=== PATIENT | female | born 1995 | race Caucasian/White ===

== ENCOUNTER 2020-11-19 10:16 | Emergency (ER) | payer SELFPAY ==
[~2020-11-19] VITALS: Ht 165.1 cm; Wt 69.8 kg
--- NOTE | 2020-11-19 11:47 | ED EENT ---
History of Present Illness General Chief Complaint: Ear Problems Stated Complaint: RT EAR PAIN Nursing Triage Note: Patient presents to ED with parent reporting R ear pain since last night and causing lack of rest. Last medication used was Ibufrofen at 0200 and not relieved. Report hx of ear pain twice in last month and once treated with antibiotic and once no meds so refusing to return to PCP today. Source: patient History of Present Illness Date Seen by Provider: Nov 19, 2020 Time Seen by Provider: 10:15 Initial Comments Patient is a 25-year-old female who presents with intermittent bilateral ear pain for the past several weeks. Patient has been evaluated by her PCP and and this ER. She has been prescribed pain medications and antibiotics. She states the pain will improve and return. She reports dull right ear pain recurring last night. She has taken ibuprofen with minimal relief. Pain is rated as moderate and radiates to right mandible. She has some nasal congestion and sinus drainage. She denies otorrhea, sinus and dental tenderness and was evaluated by her dentist 1 week ago. Timing/Duration: gradual Severity: moderate Location: other Prearrival Treatment: other Modifying Factors: Improves With Other Associated Symptoms: other Allergies and Home Medications Patient Home Medication List Home Medication List Reviewed: Yes Review of Systems Review of Systems Constitutional: see HPI Eyes: See HPI Ears: See HPI Nose: see HPI Mouth: see HPI Throat: see HPI Respiratory: see HPI Cardiovascular: see HPI Gastrointestinal: see HPI Musculoskeletal: see HPI Skin: see HPI Neurological: See HPI Hematologic/Lymphatic: See HPI Immunological/Allergic: see HPI Past Ybkmflr-Dlztir-Cuywdm Hx Patient Social History Tobacco Use?: No Smoking Status: Never a Smoker Substance use?: No Alcohol Use?: Yes Alcohol Frequency: Rarely Pt feels they are or have been: No Past Medical History Surgery/Hospitalization HX: Hx hyperactive thyroid Last Menstrual Period: Nov 15, 2020 Visual Acuity : Eye Location: Bilaterally Vision Acuity Degree: Physical Exam Vital Signs Vital Signs - First Documented 11/19/20 10:42 Temp 36.4 Pulse 92 Resp 16 B/P (MAP) 126/73 (90) Pulse Ox 100 O2 Delivery Room Air Height, Weight, BMI Height: '" Weight: lbs. oz. kg; 25.00 BMI Method: General Appearance: moderate distress Eyes: bilateral eye normal inspection, bilateral eye PERRL, bilateral eye EOMI, bilateral eye abnormal EOM, bilateral eye abnormal pupil, bilateral eye A-V nicking, bilateral eye conjunctival hemorrhage, bilateral eye conjunctival inflammation, bilateral eye conjunctivae pale, bilateral eye corneal abrasion Ears: left ear TM dull, left ear TM bulging, left ear other (blo) Progress/Results/Core Measures Results/Orders Vital Signs/I&O 11/19/20 10:42 Temp 36.4 Pulse 92 Resp 16 B/P (MAP) 126/73 (90) Pulse Ox 100 O2 Delivery Room Air Blood Pressure Mean: 90 Departure Communication (Admissions) Chronic otitis media with serous effusions. Recommendations are supportive care with PCP follow-up. Return precautions reviewed. Patient verbalizes understanding agreement discharge instructions prior to departure Impression Primary Impression: Chronic otitis media with serous effusion Disposition: HOME, SELF-CARE Condition: Stable Departure-Patient Inst. Decision time for Depature: 12:08 Referrals: [facility] (PCP) Primary Care Physician DILLON LIZ APRN (Family) Primary Care Physician Patient Instructions: Serous Otitis Media Add. Discharge Instructions: Please take newly prescribed medications as directed and follow-up with your PCP in 1 week for reevaluation. All discharge instructions reviewed with patient and/or family. Voiced understanding. Scripts Fexofenadine/Pseudoephedrine (Yasmine-D 24 Hour Tablet) 1 Each Tab.er.24h 1 EACH PO DAILY for 14 Days, TAB Prov: SONIA LAND DO 11/19/20 Tramadol HCl (Tramadol HCl) 50 Mg Tablet 50 MG PO Q6H PRN for PAIN for 3 Days, #10 TAB 0 Refills Prov: SONIA LAND DO 11/19/20 SONIA LAND DO Nov 19, 2020 11:47
[2020-11-19] MEDS ORDERED: FEXO1TAB43 PO (12:14)
[2020-11-19] MEDS ORDERED: TRM50T PO (12:14)
[2020-11-19 12:15] VITALS: BP 124/70
[2020-11-19] MEDS ORDERED: ONDA4TAB11 PO (13:24)
== END 2020-11-19 12:15 | disposition home or self-care (01) ==
LOC: EDUNIT# 10:16 → ER FS 10:18
DX: H65.23 Chronic serous otitis media, bilateral (principal)
CPT/HCPCS: 99282

== ENCOUNTER → 2021-01-17 | Outpatient (CLI) | payer SELFPAY ==
[~2021-01-17] MED LIST: FEXO1TAB43 PO; ONDA4TAB11 PO; TRM50T PO
== END ==
LOC: CARD 15:30
PROVIDERS: ATTEND Nurse Practitioner Family
DX: R00.2 Palpitations (principal)
CPT/HCPCS: 93225; 93226

== ENCOUNTER 2021-10-17 23:56 | Emergency (ER) | payer SELFPAY ==
[~2021-10-17] VITALS: Ht 162.5 cm; Wt 83.5 kg
[2021-10-18 00:04] VITALS: BP 146/87
[2021-10-18 00:40] LABS: BILIRUBIN,URINE NEGATIVE (NEGATIVE); CLARITY,URINE SLIGHTLY CLOUDY; COLOR,URINE YELLOW; GLUCOSE, URINE (UA) NEGATIVE (NEGATIVE); KETONES,URINE NEGATIVE (NEGATIVE); LEUKOCYTE ESTERASE ,URINE NEGATIVE (NEGATIVE); NITRITE,URINE NEGATIVE (NEGATIVE); PROTEIN,URINE NEGATIVE (NEGATIVE)
[2021-10-18 00:41] LABS: BACTERIA,URINE MODERATE /HPF; SQUAMOUS EPITHELIAL CELL,UR 25-50 /HPF
--- NOTE | 2021-10-18 01:04 | ED GU-Female ---
General Chief Complaint: - Reproductive Stated Complaint: LOWER ABDOMINAL PAIN/5 WEEK PREG Nursing Triage Note: Patient states that she found out she was last week. She reports feeling cramping that makes her uncomfortable. Patient denies having any bleeding. Patient reports that she thinks she is about 5 weeks . Patient would like to be checked out. Source: patient Exam Limitations: no limitations History of Present Illness Date Seen by Provider: Oct 18, 2021 Time Seen by Provider: 00:10 Initial Comments Patient is approximately 5 weeks reports occasional mitten cramping for the past month. Patient states she occasionally feels uncomfortable sharp pain. She currently denies pain or discomfort. No urinary frequency urgency dysuria. No vaginal bleeding. No flank pain. No nausea or vomiting. Patient did not take any Tylenol medication prior to arrival. No other acute symptoms or complaints. Timing/Duration: week Severity/Quality: other Location: other Radiation: urethral Activities at Onset: other Sexual [place] History: other Associated Symptoms: other Allergies and Home Medications Allergies Coded Allergies: azithromycin (Verified Allergy, Unknown, 10/18/21) Patient Home Medication List Home Medication List Reviewed: Yes Fexofenadine/Pseudoephedrine (Yasmine-D 24 Hour Tablet) 1 Each Tab.er.24h, 1 EACH PO DAILY Prescribed by: SONIA LAND on 11/19/20 1214 Ondansetron (Ondansetron Odt) 4 Mg Tab.rapdis, 4 MG PO Q6H Prescribed by: SONIA LAND on 11/19/20 1324 Tramadol HCl (Tramadol HCl) 50 Mg Tablet, 50 MG PO Q6H PRN for PAIN Prescribed by: SONIA LAND on 11/19/20 1214 Review of Systems Review of Systems Constitutional: see HPI Genitourinary: see HPI Past Ofovqoa-Xczzsi-Dafnoq Hx Patient Social History Tobacco Use?: No Substance use?: No Alcohol Use?: No Pt feels they are or have been: No Past Medical History Surgery/Hospitalization HX: Hx hyperactive thyroid Physical Exam Vital Signs Vital Signs - First Documented 10/18/21 00:04 Temp 37.1 Pulse 110 Resp 18 B/P (MAP) 146/87 (106) O2 Delivery Room Air Capillary Refill : Less Than 3 Seconds Height, Weight, BMI Height: '" Weight: lbs. oz. kg; 31.00 BMI Method: General Appearance: WD/WN, no apparent distress Gastrointestinal: non tender, soft Focused Exam Sepsis Stage: Ruled Out Progress/Results/Core Measures Suspected Sepsis SIRS Temperature: Pulse: 110 Respiratory Rate: 18 Blood Pressure 146 /87 Mean: 106 Results/Orders Lab Results Laboratory Tests Test 10/18/21 00:10 Range/Units Urine Color YELLOW Urine Clarity SLIGHTLY CLOUDY Urine pH 6.0 5-9 Urine Specific [place] >=1.030 1.016-1.022 Urine Protein NEGATIVE NEGATIVE Urine Glucose (UA) NEGATIVE NEGATIVE Urine Ketones NEGATIVE NEGATIVE Urine Nitrite NEGATIVE NEGATIVE Urine Bilirubin NEGATIVE NEGATIVE Urine Urobilinogen 0.2 < = 1.0 MG/DL Urine Leukocyte Esterase NEGATIVE NEGATIVE Urine RBC (Auto) TRACE-I H NEGATIVE Urine RBC NONE /HPF Urine WBC 5-10 H /HPF Urine Squamous Epithelial Cells 25-50 H /HPF Urine Crystals NONE /LPF Urine Bacteria MODERATE H /HPF Urine Casts NONE /LPF Urine Mucus NEGATIVE /LPF Urine Culture Indicated NO My Orders Orders - SONIA LAND DO Ua Culture If Indicated (10/18/21 00:16) Urinalysis (10/18/21 00:10) Vital Signs/I&O 10/18/21 00:04 Temp 37.1 Pulse 110 Resp 18 B/P (MAP) 146/87 (106) O2 Delivery Room Air Capillary Refill : Less Than 3 Seconds Blood Pressure Mean: 106 Departure Communication (Admissions) No pelvic pain/tenderness on exam. UA negative. Recommendations are for supportive measures and PCP/OB follow-up. Return precautions reviewed Impression Primary Impression: Pelvic cramping Additional Impression: Early stage of Disposition: 01 HOME, SELF-CARE Condition: Stable Departure-Patient Inst. Decision time for Depature: 01:02 Referrals: [facility][1[facility] (PCP) Primary Care Physician DILLON LIZ APRN (Family) Primary Care Physician Patient Instructions: Pelvic Pain Add. Discharge Instructions: Please take Tylenol for cramping and apply heating pad if needed. Follow-up with your PCP or OB early next week for reevaluation. Return to the ED if new or worsening symptoms All discharge instructions reviewed with patient and/or family. Voiced understanding. SONIA LAND DO Oct 18, 2021 01:04
== END 2021-10-18 01:11 | disposition home or self-care (01) ==
LOC: EDUNIT# 23:56 → ER FS 23:59
DX: O26.891 Other specified pregnancy related conditions, first trimester (principal); R10.2 Pelvic and perineal pain
CPT/HCPCS: 81000; 84703; 99282

== ENCOUNTER 2022-03-05 10:30 | Emergency (ER) | payer MEDICAID ==
[2022-03-05] MEDS ORDERED: FAMOTIDINE 20 MG (PEPCID) TABLET PO STA (10:45)
[2022-03-05] MEDS ORDERED: ONDANSETRON 4 MG (ZOFRAN) ORAL DISSOLVE TAB SL STA (10:45)
[2022-03-05] MEDS ORDERED: ACETAMINOPHEN 500 MG TAB (TYLENOL) ONE (10:49)
--- NOTE | 2022-03-05 10:51 | ED GI ---
General Chief Complaint: Abdominal/GI Problems Stated Complaint: VOMITING Source of Information: Patient Exam Limitations: No Limitations History of Present Illness Date Seen by Provider: Mar 05, 2022 Time Seen by Provider: 10:33 Initial Comments 27-year-old female at 26 WGA coming in due to 3 days of cough, sore throat, elevated temperature, nausea, and vomiting. Went to her primary doctor yesterday and had a negative strep test. Had a negative at home COVID test as well. Has not had anything for fever or pain as of yet today. Has not had any complications with the , no vaginal bleeding, feels baby moving, no contractions, and has had normal work-up thus far. One of her friends did have strep throat recently she believes. She is tolerating fluids at home but is drinking slightly less. She is otherwise denying any other acute complaints. Allergies and Home Medications Allergies Coded Allergies: azithromycin (Verified Allergy, Unknown, 10/18/21) Patient Home Medication List Home Medication List Reviewed: Yes Fexofenadine/Pseudoephedrine (Yasmine-D 24 Hour Tablet) 1 Each Tab.er.24h, 1 EACH PO DAILY Prescribed by: SONIA LAND on 11/19/20 1214 Ondansetron (Ondansetron Odt) 4 Mg Tab.rapdis, 4 MG PO Q6H Prescribed by: SONIA LAND on 11/19/20 1324 Tramadol HCl (Tramadol HCl) 50 Mg Tablet, 50 MG PO Q6H PRN for PAIN Prescribed by: SONIA LAND on 11/19/20 1214 Review of Systems Review of Systems Constitutional: malaise EENTM: No Blurred Vision; Other Respiratory: Cough Cardiovascular: Denies Chest Pain Gastrointestinal: Denies Abdominal Pain; Diarrhea, Nausea Genitourinary: No Symptoms Reported Musculoskeletal: no symptoms reported Skin: no symptoms reported Psychiatric/Neurological: No Symptoms Reported Endocrine: No Symptoms Reported Hematologic/Lymphatic: No Symptoms Reported All Other Systems Reviewed Negative Unless Noted: Yes Past [place]-Vnryfb-Gtgkzh Hx Patient Social History Tobacco Use?: No Past Medical History Surgery/Hospitalization HX: Hx hyperactive thyroid Surgeries: No Physical Exam Vital Signs Vital Signs - First Documented 03/05/22 10:40 Temp 36.3 Pulse 126 Resp 16 B/P (MAP) 128/87 (101) Pulse Ox 98 O2 Delivery Room Air Capillary Refill : Height/Weight/BMI Height: '" Weight: lbs. oz. kg; 31.00 BMI Method: General Appearance: WD/WN, no apparent distress HEENT: PERRL/EOMI, normal ENT inspection, pharyngeal erythema; No tonsillar exudate Neck: non-tender, full range of motion, supple, normal inspection Respiratory: chest non-tender, lungs clear, normal breath sounds, no respiratory distress, no accessory muscle use Cardiovascular: regular rate, rhythm, no edema, no murmur Gastrointestinal: normal bowel sounds, non tender, soft; No distended, No guarding, No rebound; other Extremities: normal range of motion, non-tender, normal inspection, no pedal edema, no calf tenderness, normal capillary refill Back: normal inspection, no CVA tenderness, no vertebral tenderness Neurologic/Psychiatric: no motor/sensory deficits, alert, normal mood/affect Skin: normal color, warm/dry Lymphatic: no adenopathy Progress/Results/Core Measures Results/Orders Lab Results Laboratory Tests Test 03/05/22 10:47 Range/Units Influenza Type A (RT-PCR) Not Detected Not Detecte Influenza Type B (RT-PCR) Not Detected Not Detecte SARS-CoV-2 RNA (RT-PCR) Not Detected Not Detecte My Orders Orders - JUAN SEO MD Influenza A And B By Pcr (03/05/22 10:45) Covid 19 Inhouse Test (03/05/22 10:45) Ondansetron Oral Dissolve Tab (Zofran (03/05/22 10:45) Famotidine Tablet (Pepcid Tablet) (03/05/22 10:45) Acetaminophen Tablet (Tylenol Tablet) (03/05/22 11:00) Acetaminophen Tablet (Tylenol Tablet) (03/05/22 10:49) Lactated Ringers (Lr 1000 Ml Iv Solution (03/05/22 11:15) Medications Given in ED Current Medications Medications Dose Ordered Sig/Madai Route Start Time Stop Time Status Last Admin Dose Admin Acetaminophen 1,000 mg ONCE ONCE PO 03/05/22 11:00 03/05/22 11:01 DC 03/05/22 11:17 1,000 MG Vital Signs/I&O 03/05/22 10:40 Temp 36.3 Pulse 126 Resp 16 B/P (MAP) 128/87 (101) Pulse Ox 98 O2 Delivery Room Air Progress Progress Note : Progress Note 27-year-old female with above history presenting for viral symptoms including cough, sore throat, nausea, diarrhea. ABCs were intact and vitals were stable on presentation although she is mildly tachycardic. She states over the past couple days she has not been eating and drinking as well. She was given oral Zofran and Pepcid. Able to drink some water with it, but does have some dry heaving. An IV was then placed and she was given a bolus of IV fluids. I did a [id number] ultrasound and her heart rate is in the 150s with movement as well. Flu and COVID test were negative. Patient's exam is reassuring including a soft and nontender abdomen. I believe she stable for discharge with outpatient follow-up. She was sent home with strict return precautions Departure Impression Primary Impression: Vomiting in adult Additional Impressions: Viral syndrome Qualified Codes: Z3A.26 - 26 weeks gestation of Disposition: HOME, SELF-CARE Condition: Stable Departure-Patient Inst. Decision time for Depature: 11:40 Referrals: YONATAN ROLDAN MD (PCP) Primary Care Physician Patient Instructions: Nausea and Vomiting, Adult ED Add. Discharge Instructions: You likely do have a virus that is going around town right now. Most people are getting better in about a week. Take frequent small sips of fluids. Take the Zofran as needed for nausea. A refill of your albuterol was sent to your pharmacy as well. Follow-up with your regular doctor if you are not improving or if they have any other concerns emergently please come to the ER. Scripts Ondansetron (Ondansetron Odt) 4 Mg Tab.rapdis 4 MG SL Q6H PRN for NAUSEA/VOMITING for 5 Days, #20 TAB Prov: JUAN SEO MD 03/05/22 Albuterol Sulfate (Ventolin Hfa) 90 Mcg Hfa.aer.ad 18 GM INH Q4H PRN for WHEEZING for 30 Days, #1 EA Prov: JUAN SEO MD 03/05/22 Work/School Note: Work Release Form Date Seen in the Emergency Department: Mar 05, 2022 Return to Work: Mar 06, 2022 Restrictions: Return-No Fever (24hrs), Return-No Vomiting(24hrs) JUAN SEO MD Mar 05, 2022 10:51
[2022-03-05] MEDS ORDERED: ACETAMINOPHEN 500 MG TAB (TYLENOL) PO ONE (11:00)
[2022-03-05] MEDS ORDERED: LACTATED RINGERS 1,000 ML IV STA (11:15)
[2022-03-05] MEDS ORDERED: ONDA4TAB11 SL (11:29)
[2022-03-05] MEDS ORDERED: ALBU18HF2 INH (11:29)
[2022-03-05 11:47] VITALS: BP 128/87
== END 2022-03-05 11:48 | disposition home or self-care (01) ==
LOC: EDUNIT# 10:30 → ER FS 10:32
DX: O98.512 Other viral diseases complicating pregnancy, second trimester (principal); O21.9 Vomiting of pregnancy, unspecified; O99.891 Other specified diseases and conditions complicating pregnancy; J02.9 Acute pharyngitis, unspecified; R05.1 Acute cough; R19.7 Diarrhea, unspecified; R00.0 Tachycardia, unspecified; Z20.822 Contact with and (suspected) exposure to COVID-19; Z28.310 Unvaccinated for COVID-19; Z3A.26 26 weeks gestation of pregnancy
CPT/HCPCS: 87636

== ENCOUNTER 2022-04-12 21:23 | Emergency (ER) | payer MEDICAID ==
[~2022-04-12] VITALS: Ht 162 cm; Wt 85.0 kg
[~2022-04-12 21:23] MED LIST changes: +ALBU18HF2 INH; +ONDA4TAB11 SL
--- NOTE | 2022-04-12 21:40 | ED GU-Female ---
General Chief Complaint: OB > 20 WEEKS Stated Complaint: POSSIBLE CONTRACTIONS Nursing Triage Note: Patient presented to the ER tonight with complaints of contractions, states her stomach feels hard and that she has felt decreased movement. Source: patient Exam Limitations: no limitations History of Present Illness Date Seen by Provider: Apr 12, 2022 Time Seen by Provider: 21:20 Initial Comments 27-year-old female that is at 31w3d EGA seen by Dr. Roldan for her OB care coming in due to decreased movement and concerned she could be lo. She states she is never felt contractions before, but feels like her abdomen is hard. She says that uncomfortable, no severe pain. She is unable to say if there is really any timing in between the episodes, more so that its been constant all day. Has not had any Tylenol. Eating and drinking normally. Denies any vaginal bleeding or loss of fluids like her water has broken. Otherwise denying any other acute complaints. Has had a healthy so far. Allergies and Home Medications Allergies Coded Allergies: azithromycin (Verified Allergy, Unknown, 10/18/21) Patient Home Medication List Home Medication List Reviewed: Yes Albuterol Sulfate (Ventolin Hfa) 90 Mcg Hfa.aer.ad, 18 GM INH Q4H PRN for WHEEZING Prescribed by: JUAN SEO on 03/05/22 1129 Fexofenadine/Pseudoephedrine (Yasmine-D 24 Hour Tablet) 1 Each Tab.er.24h, 1 EACH PO DAILY Prescribed by: SONIA LAND on 11/19/20 1214 Ondansetron (Ondansetron Odt) 4 Mg Tab.rapdis, 4 MG PO Q6H Prescribed by: SONIA LAND on 11/19/20 1324 Ondansetron (Ondansetron Odt) 4 Mg Tab.rapdis, 4 MG SL Q6H PRN for NAUSEA /VOMITING Prescribed by: JUAN SEO on 03/05/22 1129 Tramadol HCl (Tramadol HCl) 50 Mg Tablet, 50 MG PO Q6H PRN for PAIN Prescribed by: SONIA LAND on 11/19/20 1214 Review of Systems Review of Systems Constitutional: No fever EENTM: no symptoms reported Respiratory: no symptoms reported Cardiovascular: no symptoms reported Gastrointestinal: no symptoms reported Genitourinary: frequency Expected Date of Delivery: Jun 11, 2022 Musculoskeletal: no symptoms reported Skin: no symptoms reported Psychiatric/Neurological: No Symptoms Reported Endocrine: No Symptoms Reported Hematologic/Lymphatic: No Symptoms Reported All Other Systemes Reviewed Negative Unless Noted: Yes Past [place]-Amtgeo-Cpufcw Hx Patient Social History Tobacco Use?: No Substance use?: No Alcohol Use?: No Past Medical History Surgery/Hospitalization HX: Hx hyperactive thyroid Surgeries: No Expected Date of Delivery: Jun 11, 2022 Physical Exam Vital Signs Vital Signs - First Documented 04/12/22 21:29 Temp 36.1 Pulse 115 Resp 14 B/P (MAP) 135/87 (103) Pulse Ox 99 O2 Delivery Room Air Capillary Refill : Less Than 3 Seconds Height, Weight, BMI Height: '" Weight: lbs. oz. kg; 32.00 BMI Method: General Appearance: WD/WN, no apparent distress HEENT: PERRL/EOMI, normal ENT inspection, pharynx normal Neck: non-tender, full range of motion, supple, normal inspection Cardiovascular: regular rate, rhythm, no edema, no murmur Respiratory: chest non-tender, lungs clear, normal breath sounds, no respiratory distress, no accessory muscle use Gastrointestinal: normal bowel sounds, non tender, soft; No guarding; other (Gravid, uterus above umbilicus) Back: normal inspection Extremities: normal range of motion, non-tender, normal inspection, no pedal e jaelyn, no calf tenderness, normal capillary refill Neurologic/Psychiatric: no motor/sensory deficits, alert, normal mood/affect Skin: normal color, warm/dry Lymphatic: no adenopathy Progress/Results/Core Measures Suspected Sepsis SIRS Temperature: Pulse: 115 Respiratory Rate: 14 Laboratory Tests 04/12/22 21:45: White Blood Count 10.8 Blood Pressure 135 /87 Mean: 103 Laboratory Tests 04/12/22 21:45: Platelet Count 308 Results/Orders Lab Results Laboratory Tests Test 04/12/22 21:39 04/12/22 21:45 Range/Units Urine Color YELLOW Urine Clarity CLEAR Urine pH 6.5 5-9 Urine Specific [place] <=1.005 1.016-1.022 Urine Protein NEGATIVE NEGATIVE Urine Glucose (UA) NEGATIVE NEGATIVE Urine Ketones NEGATIVE NEGATIVE Urine Nitrite NEGATIVE NEGATIVE Urine Bilirubin NEGATIVE NEGATIVE Urine Urobilinogen 0.2 < = 1.0 MG/DL Urine Leukocyte Esterase NEGATIVE NEGATIVE Urine RBC (Auto) NEGATIVE NEGATIVE Urine RBC 2-5 H /HPF Urine WBC NONE /HPF Urine Squamous Epithelial Cells 10-25 H /HPF Urine Crystals NONE /LPF Urine Bacteria TRACE /HPF Urine Casts NONE /LPF Urine Mucus NEGATIVE /LPF Urine Culture Indicated NO White Blood Count 10.8 4.3-11.0 10^3/uL Red Blood Count 3.58 L 3.80-5.11 10^6/uL Hemoglobin 10.2 L 11.5-16.0 g/dL Hematocrit 30 L 35-52 % Mean Corpuscular Volume 85 80-99 fL Mean Corpuscular Hemoglobin 29 25-34 pg Mean Corpuscular Hemoglobin Concent 34 32-36 g/dL Red Cell Distribution Width 14.2 10.0-14.5 % Platelet Count 308 130-400 10^3/uL Mean Platelet Volume 10.5 9.0-12.2 fL Immature Granulocyte % (Auto) 1 % Neutrophils (%) (Auto) 65 42-75 % Lymphocytes (%) (Auto) 27 12-44 % Monocytes (%) (Auto) 6 0-12 % Eosinophils (%) (Auto) 1 0-10 % Basophils (%) (Auto) 0 0-10 % Neutrophils # (Auto) 7.1 1.8-7.8 10^3/uL Lymphocytes # (Auto) 2.9 1.0-4.0 10^3/uL Monocytes # (Auto) 0.6 0.0-1.0 10^3/uL Eosinophils # (Auto) 0.1 0.0-0.3 10^3/uL Basophils # (Auto) 0.0 0.0-0.1 10^3/uL Immature Granulocyte # (Auto) 0.1 0.0-0.1 10^3/uL My Orders Orders - JUAN SEO MD Ed Iv/Invasive Line Start (04/12/22 21:34) Lactated Ringers (Lr 1000 Ml Iv Solution (04/12/22 21:45) Cbc With Automated Diff (04/12/22 21:34) Comprehensive Metabolic Panel (04/12/22 21:34) Lipase (04/12/22 21:34) Ua Culture If Indicated (04/12/22 21:34) Acetaminophen Tablet (Tylenol Tablet) (04/12/22 21:45) Medications Given in ED Current Medications Medications Dose Ordered Sig/Madai Route Start Time Stop Time Status Last Admin Dose Admin Acetaminophen 1,000 mg ONCE ONCE PO 04/12/22 21:45 04/12/22 21:46 DC 04/12/22 21:52 1,000 MG Lactated Ringer's 1,000 ml @ 0 mls/hr Q0M ONCE IV 04/12/22 21:45 04/12/22 21:46 DC 04/12/22 21:52 0 MLS/HR Vital Signs/I&O 04/12/22 04/12/22 21:29 21:52 Temp 36.1 36.1 Pulse 115 Resp 14 B/P (MAP) 135/87 (103) Pulse Ox 99 O2 Delivery Room Air Capillary Refill : Less Than 3 Seconds Blood Pressure Mean: 103 Progress Note : Progress Note 27-year-old female with above history coming in due to concerns for decreased movement and wondering if she is having contractions. ABCs were intact and vitals were stable on presentation. Physical exam with a gravid uterus, no tenderness on exam. I did a [id number] ultrasound showing a heart rate of 147, I do see movement. She does not have any loss of fluids like her water broke, and no vaginal bleeding. An IV was placed and she will be given a bolus of IV fluids as well as Tylenol to see if we can help with the abdominal t ightness that she is feeling. Basic labs including LFTs and lipase also ordered with urinalysis. I contacted OB in [facility] and gave report. They will evaluate the patient on arrival there. Offer the patient an ambulance, and she would like her significant other to drive her. Given she does not subjectively appear like she is in active labor, I believe this is okay. Of note, patient does have trace bacteria in her urine. I discussed that we do recommend treating this in . Antibiotics sent to her pharmacy. Departure Impression Primary Impression: Qualified Codes: Z3A.31 - 31 weeks gestation of Additional Impression: Decreased movement Qualified Codes: O36.8130 - Decreased movements, third trimester, not applicable or unspecified Disposition: 01 HOME, SELF-CARE Condition: Stable Departure-Patient Inst. Decision time for Depature: 21:47 Referrals: YONATAN ROLDAN MD (PCP) Primary Care Physician DILLON LIZ APRN (Family) Primary Care Physician Patient Instructions: Movement Add. Discharge Instructions: Please drive directly to the ER in [place]. You can say they are expecting you up in OB due to concerns for potential labor. They should direct you directly upstairs. If you feel like you are going into labor while your significant other is driving you, please stop the car and call 911. Scripts Nitrofurantoin Macrocrystal (Nitrofurantoin) 100 Mg Capsule 100 MG PO BID for 5 Days, #10 CAP 0 Refills Prov: JUAN SEO MD 04/12/22 JUAN SEO MD Apr 12, 2022 21:40
[2022-04-12] MEDS ORDERED: LACTATED RINGERS 1,000 ML IV ONE (21:45)
[2022-04-12] MEDS ORDERED: ACETAMINOPHEN 500 MG TAB (TYLENOL) PO ONE (21:45)
[2022-04-12 21:51] LABS: BASOPHILS % (AUTO) 0 % (0-10); EOSINOPHILS # (AUTO) 0.1 10^3/uL (0.0-0.3); EOSINOPHILS % (AUTO) 1 % (0-10); HEMATOCRIT 30 % (35-52); HEMOGLOBIN 10.2 g/dL (11.5-16.0); LYMPHOCYTES # (AUTO) 2.9 10^3/uL (1.0-4.0); LYMPHOCYTES % (AUTO) 27 % (12-44); MEAN CORPUSCULAR HEMOGLOBIN 29 pg (25-34); MEAN CORPUSCULAR HGB CONC 34 g/dL (32-36); MEAN CORPUSCULAR VOLUME 85 fL (80-99); MEAN PLATELET VOLUME 10.5 fL (9.0-12.2); MONOCYTES # (AUTO) 0.6 10^3/uL (0.0-1.0); MONOCYTES % (AUTO) 6 % (0-12); NEUTROPHILS # (AUTO) 7.1 10^3/uL (1.8-7.8); NEUTROPHILS % (AUTO) 65 % (42-75); PLATELET COUNT 308 10^3/uL (130-400); WHITE BLOOD COUNT 10.8 10^3/uL (4.3-11.0)
[2022-04-12 21:53] LABS: BILIRUBIN,URINE NEGATIVE (NEGATIVE); CLARITY,URINE CLEAR; COLOR,URINE YELLOW; GLUCOSE, URINE (UA) NEGATIVE (NEGATIVE); KETONES,URINE NEGATIVE (NEGATIVE); LEUKOCYTE ESTERASE ,URINE NEGATIVE (NEGATIVE); NITRITE,URINE NEGATIVE (NEGATIVE); PH,URINE 6.5 (5-9); PROTEIN,URINE NEGATIVE (NEGATIVE)
[2022-04-12 21:58] LABS: BACTERIA,URINE TRACE /HPF
[2022-04-12] MEDS ORDERED: NITR100C PO (22:02)
[2022-04-12 22:10] VITALS: BP 135/75
[2022-04-12 22:10] LABS: BILIRUBIN,TOTAL 0.2 MG/DL (0.1-1.0); CALCIUM 9.2 MG/DL (8.5-10.1); CREATININE SERUM 0.53 MG/DL (0.60-1.30); POTASSIUM 3.7 MMOL/L (3.6-5.0); TOTAL PROTEIN 6.8 GM/DL (6.4-8.2)
[2022-04-12 22:11] LABS: ALBUMIN 3.5 GM/DL (3.2-4.5)
[2022-04-13] MEDS ORDERED: FAMO20TA3 PO ×2 (00:13)
[2022-04-13] MEDS ORDERED: LACT1CAP61 PO ×2 (00:13)
[2022-04-13] MEDS ORDERED: PREN-8 PO ×2 (00:13)
[2022-04-13] MEDS ORDERED: FERR-74 PO ×2 (00:13)
== END 2022-04-12 22:10 | disposition home or self-care (01) ==
LOC: EDUNIT# 21:23 → ER FS 21:25
DX: O36.8130 Decreased fetal movements, third trimester, not applicable or unspecified (principal); Z3A.31 31 weeks gestation of pregnancy
CPT/HCPCS: 36415; 80053; 81000; 83690; 85025

== ENCOUNTER 2022-04-12 22:53 | Outpatient (CLI) | payer MEDICAID ==
[~2022-04-12] VITALS: Ht 162.6 cm; Wt 87.0 kg
[~2022-04-12 22:53] MED LIST changes: +NITR100C PO
[2022-04-12 23:10] VITALS: BP 129/63
[2022-04-12 23:30] VITALS: BP 129/63
[2022-04-12 23:40] VITALS: BP 119/65
[2022-04-13 00:10] VITALS: BP 121/70
[2022-04-13] MEDS ORDERED: LACT1CAP61 PO ×2 (00:13)
[2022-04-13] MEDS ORDERED: FAMO20TA3 PO ×2 (00:13)
[2022-04-13] MEDS ORDERED: PREN-8 PO ×2 (00:13)
[2022-04-13] MEDS ORDERED: FERR-74 PO ×2 (00:13)
--- NOTE | 2022-04-13 09:02 | Physician Query-Final Dx ---
04/13/2202: Clinic Account Progress/Dx Physician Query: Please give diagnosis Please include # weeks gestation Date of Service Apr 12, 2022 at 22:53 KEKE PEREIRA DO 04/13/222006: Clinic Account Progress/Dx DIAGNOSIS: Diagnosis 31 wk GA dehydration decreased movement with reassuring heart tones. Apr 13, 2022 09:02 KEKE PEREIRA DO Apr 13, 2022 20:07
== END 2022-04-13 00:31 ==
LOC: LDRP 22:53 → WSo 22:53
PROVIDERS: ATTEND Family Medicine
DX: O36.8130 Decreased fetal movements, third trimester, not applicable or unspecified (principal); O26.893 Other specified pregnancy related conditions, third trimester; E86.0 Dehydration; Z3A.31 31 weeks gestation of pregnancy

== ENCOUNTER 2022-05-19 12:35 | Outpatient (CLI) | payer MEDICAID ==
[~2022-05-19] VITALS: Ht 162.5 cm; Wt 87.0 kg
[~2022-05-19 12:35] MED LIST changes: +FAMO20TA3 PO; +FERR-74 PO; +LACT1CAP61 PO; +PREN-8 PO
[2022-05-19 12:50] VITALS: BP 114/78
[2022-05-19] MEDS ORDERED: IRON SUCROSE INJECTION 300 MG in NS (IVPB) 250 ML IV ONE (13:30)
== END 2022-05-19 15:11 | disposition home or self-care (01) ==
LOC: SDC 12:35
PROVIDERS: ATTEND Family Medicine
DX: O99.013 Anemia complicating pregnancy, third trimester (principal); Z3A.00 Weeks of gestation of pregnancy not specified
CPT/HCPCS: 96365

== ENCOUNTER → 2022-05-28 | Outpatient (CLI) | payer MEDICAID ==
[~2022-05-28] VITALS: Ht 162.6 cm; Wt 86.5 kg
[~2022-05-28] MED LIST changes: +IRON SUCROSE INJECTION 300 MG in NS (IVPB) 250 ML IV ONE
[2022-05-28 15:15] VITALS: BP 108/71
== END ==
LOC: SDC 13:31
PROVIDERS: ATTEND Family Medicine
DX: O99.013 Anemia complicating pregnancy, third trimester (principal); Z3A.00 Weeks of gestation of pregnancy not specified
CPT/HCPCS: 96365

== ENCOUNTER 2022-06-15 18:19 | Inpatient (IN) | payer MEDICAID ==
[2022-06-15] VITALS (7 sets, daily range): BP systolic 108–126; BP diastolic 65–86
[~2022-06-15] VITALS: Ht 165.1 cm; Wt 87.8 kg
[~2022-06-15 18:19] MED LIST changes: -IRON SUCROSE INJECTION 300 MG in NS (IVPB) 250 ML IV ONE
--- OUTSIDE RECORDS SUMMARY | 2022-06-15 18:23 | XMS REPORT ---
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 8612506 4 Problem Hypothyroidism, unspecified E03.9 confirmed 48414245 Problem Endocrine, nutritional and m etabolic diseases complicating , unspecified trimester O99.280 confirmed 24485582 2 Problem Anemia during in third trimester O99.013 confirmed Problem Hyperthyroidism E05.90 confirmed 3448 6009 Problem Seasonal allergic rhinitis, unspecified trigger J30.2 confirmed 421690808 Problem Gastroesophageal reflux disease without esophagitis K21.9 confirmed 287746279 Problem Thyrotoxicosis, unspecified without thyrotoxic crisis or storm E05.90 confirmed 03025673 ALLERGIES Allergen (clinical drug ingredient) Drug/Non Drug Allergy do cumented on EMR Reaction Allergy Type Onset Date Status azithromycin Azithromycin([facility] Code:[address]-81) hives Drug All ergy Active ENCOUNTERS from 1996 to 2022-05-23 Encounter Location Date [facility] [address] [id number] [address] Jun, WAYNE MOSHER IMMUNIZATIONS Vaccine Route Administration Date Status Influenza (split), preservative free, 6-35 months Unknown Apr 06, 2003 Administered STATE FUNDED GARDASIL 9 (HPV) IM Intramuscular Feb 24, 2019 A dministered PRIVATE GARDASIL 9 (HPV) IM Intramuscular May 23, 2018 Admini stered PRIVATE GARDASIL 9 (HPV) IM Intramuscular August 29, 2018 Admini stered mmr-II (history) Unknown Jan 29, 2000 Administered Influenza (split), preservative free, 6-35 months Unknown Mar 09, 2007 Administered Influenza (split), preservative free, 6-35 months Unknown Feb 15, 2004 Administered Influenza (split), preservative free, 6-35 months Unknown May 14, 2003 Administered DTP Unknown 1996 Administered PRIVATE TDAP (BOOSTRIX) IM Intramuscular Mar 30, 2022 Adminis tered hepatitis b pediatric (history) Unknown 1996 Administered hepatitis b pediatric (history) Unknown 1996 Administered OPV Unknown Apr 02, 1997 Administered OPV Unknown 1996 Administered OPV Unknown 1996 Administered DTP Unknown Apr 02, 1997 Administered DTP Unknown 1996 Administered engerix hepatitis b pediatric/adolescent (history) Unknown Feb 12, 1997 Administered acthib hib prp-t (history) Unknown 1996 Admin istered acthib hib prp-t (history) Unknown 1996 Admin istered acthib hib prp-t (history) Unknown Apr 02, 1997 Admin istered mmr-II (history) Unknown Feb 12, 1997 Administered varivax (history) Unknown Feb 12, 1997 Administered dt (history) Unknown October 23, 1998 Administered influenza LAIV nasal (history) Unknown Mar 16, 2005 A dministered tenivac td (history) Unknown May 27, 2011 Administere d polio ipv (history) Unknown Jan 29, 2000 Administered SOCIAL HISTORY Sex Assigned At : Social History Observation Description Sex Assigned At Unknown Alcohol Screen (Audit-C) Question Answer Notes Did you have a drink containing alcohol in the past year? Ye s Points 1 Interpretation Negative How often did you have 6 or more drinks on one occasio n in the past year? Never (0 points) How many drinks did you have on a typica l day when you were drinking in the past year? 1 or 2 (0 points) How often did you have a drink containing alcohol in t he past year? Monthly or less (1 point) DAST-10 (2020 Edition) Question Answer Notes 1. Have you used drugs other than those required for medical reasons? No 2. Do you abuse more than one drug at a time? No 3. Are you always able to stop using drugs when you want to? No 4. Have you had "blackouts" or "flashbacks" as a result of d rug use? No 5. Do you ever feel bad or guilty about your drug use? No 6. Does your spouse (or parents) ever co mplain about your involvement with drugs? No 7. Have you neglected your family because of your use of cara gs? No 8. Have you engaged in illegal activities in order to obtain drugs? No 9. Have you ever experienced withdrawal symptoms (felt sick) when you stopped taking drugs? No 10. Have you had medical problems as a r esult of your drug use (e.g., memory loss, hepatitis, convulsions, bleeding etc.)? No Results: 1 Interpretation of Score: Low level Sexual History Question Answer Notes Had sex in the past 12 months (vaginal, oral, or anal)? Yes Last menstrual period 07/13/2018 Have you ever had a Sexually transmitted disease? No with Men only Use protection? No PHQ2 Question Answer Notes In the last 2 weeks, how often have you had little interest or pleasure in doing things? Not at all In the last 2 weeks, how often have you been feeling down, depressed, or hopeless? Not at all Total PHQ2 Score 0 REASON FOR REFERRAL No Information VITAL SIGNS No information MEDICATIONS Medication SIG (Take, Route, Frequency, Duration) Notes Start Da te End Date Status Pantoprazole Sodium 40 MG 1 tablet Orally Once a day after 3 months need to switch to 20mg dose August, Active Docusate Sodium 100 MG 1 capsule Orally Twice a day for 30 days Mar, Active Famotidine 20 MG 1 tablet Orally Twice a day for 30 days In addition to Protonix. Jan, Active Iron (Ferrous Sulfate) 325 (65 fe) mg 1 tablet Orally Once a day for 30 days Mar, Active Active Albuterol Sulfate HFA 108 (90 Base) MCG/ACT 1 puff as needed Inhalation every 4 hrs for 30 days prn Mar, Active Probiotic - as directed Orally Activ e PROCEDURES No Information RESULTS No Results REASON FOR VISIT Requests return call MEDICAL (GENERAL) HISTORY Type Description Date Medical History Anxiety and panic attacks, patient repor tamela Medical History Depression, patient reported Medical History Scoliosis Medical History asthma - mild intermittent Surgical History Tubes in ears Hospitalization History see surgeries Goals Section No Information Health Concerns No Information MEDICAL EQUIPMENT No Information MENTAL STATUS No Information FUNCTIONAL STATUS No Information ASSESSMENTS No Information PLAN OF TREATMENT Next Appt Details Provider Name:YONATAN ROLDAN, 2022-05-25 03 :40:00 PM, [address] [place] [address], [id number], [place], [address], Provider Name:YONATAN ROLDAN, 2022-06-01 03 :40:00 PM, [address] [place] [address], [id number], [place], [address], Provider Name:YONATAN ROLDAN, 2022-06-08 03 :40:00 PM, [address] [place] [address], [id number], [place], [address], Insurance Providers Payer Name Payer Address Payer Phone Insured Name Patient Relati onship to Insured Coverage Start Date Coverage End Date Subscriber Number Group Nu mber [employer] [id number] [facility] [id number] Harleen Israel Self - patient is the insured 2020 VICTORIA [employer] [facility] [address] [address] [facility] [address] Harleen Israel Self - patient is the insured 2021 [id number] MEDICATIONS ADMINISTERED Medication Instructions Date of Administration Dosage ROCEPHIN 250 MG (IM) Mar, 1 mL Dexamethasone Oct, 4 mg
--- OUTSIDE RECORDS SUMMARY | 2022-06-15 18:23 | XMS REPORT | Encounter Summary ---
Author Author [facility] Organization [facility] Address Unknown Phone Unavailable Care Team Providers Care Finance Manager Name Role Phone PCP Unavailable Encounter Details Care Team Description Date Type Department Jenni Howard RN Thyrotoxicosis during (Primary Dx) 04/28/2022 Orders Only [facility] [address] [place] [address] Social History Date Tobacco Use Types Packs/Day Years Used Smoking Tobacco: Never Smokeless Tobacco: Never Comments Alcohol Use Standard Drinks/Week Never 0 (1 standard drink = 0.6 o z pure alcohol) Sex Assigned at Date Recorded Not on file documented as of this encounter Plan of Treatment Order Schedule Name Type Priority Associated Diag noses Expected: 05/29/2022 (Approximate), Expi res: 04/28/2023 T3 Free Lab Routine Thyrotoxicosis during Expected: 05/29/2022 (Approximate), Expi res: 04/28/2023 T4 Free Lab Routine Thyrotoxicosis during Expected: 05/29/2022 (Approximate), Expi res: 04/28/2023 Thyroid Stimulating Lab Routine Thyrotoxic osis during Hormone documented as of this encounter Visit Diagnoses Diagnosis Thyrotoxicosis during - Prima ry documented in this encounter
--- OUTSIDE RECORDS SUMMARY | 2022-06-15 18:23 | XMS REPORT ---
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 7510707 4 Problem Hypothyroidism, unspecified E03.9 confirmed 30356836 Problem Endocrine, nutritional and m etabolic diseases complicating , unspecified trimester O99.280 confirmed 76080578 2 Problem Anemia during in third trimester O99.013 confirmed Problem Hyperthyroidism E05.90 confirmed 3448 6009 Problem Seasonal allergic rhinitis, unspecified trigger J30.2 confirmed 477903726 Problem Gastroesophageal reflux disease without esophagitis K21.9 confirmed 849184884 Problem Thyrotoxicosis, unspecified without thyrotoxic crisis or storm E05.90 confirmed 81732065 ALLERGIES Allergen (clinical drug ingredient) Drug/Non Drug Allergy do cumented on EMR Reaction Allergy Type Onset Date Status azithromycin Azithromycin([facility] Code:[address]-97) hives Drug All ergy Active ENCOUNTERS from 1996 to 2022-05-30 Encounter Location Date [facility] [address] [id number] [address] Jun, WAYNE MOSHER Skin infection L08.9 and Screening for STD (sexually transmitted disease) Z11.3 IMMUNIZATIONS Vaccine Route Administration Date Status acthib hib prp-t (history) Unknown 1996 Admin istered acthib hib prp-t (history) Unknown 1996 Admin istered acthib hib prp-t (history) Unknown Apr 02, 1997 Admin istered influenza LAIV nasal (history) Unknown Mar 16, 2005 A dministered varivax (history) Unknown Feb 12, 1997 Administered dt (history) Unknown October 23, 1998 Administered tenivac td (history) Unknown May 27, 2011 Administere d engerix hepatitis b pediatric/adolescent (history) Unknown Feb 12, 1997 Administered DTP Unknown 1996 Administered OPV Unknown 1996 Administered OPV Unknown 1996 Administered Influenza (split), preservative free, 6-35 months Unknown Mar 09, 2007 Administered Influenza (split), preservative free, 6-35 months Unknown Feb 15, 2004 Administered Influenza (split), preservative free, 6-35 months Unknown May 14, 2003 Administered Influenza (split), preservative free, 6-35 months Unknown Apr 06, 2003 Administered DTP Unknown Apr 02, 1997 Administered DTP Unknown 1996 Administered PRIVATE TDAP (BOOSTRIX) IM Intramuscular Mar 30, 2022 Adminis tered PRIVATE GARDASIL 9 (HPV) IM Intramuscular May 23, 2018 Admini stered PRIVATE GARDASIL 9 (HPV) IM Intramuscular August 29, 2018 Admini stered mmr-II (history) Unknown Feb 12, 1997 Administered OPV Unknown Apr 02, 1997 Administered hepatitis b pediatric (history) Unknown 1996 Administered hepatitis b pediatric (history) Unknown 1996 Administered mmr-II (history) Unknown Jan 29, 2000 Administered polio ipv (history) Unknown Jan 29, 2000 Administered STATE FUNDED GARDASIL 9 (HPV) IM Intramuscular Feb 24, 2019 A dministered SOCIAL HISTORY Sex Assigned At : Social [...] REASON FOR REFERRAL No Information VITAL SIGNS Height 65 in Jun, Height-cm 165.1 cm Jun, Weight 148 lbs Jun, Weight-kg 67.13 kg Jun, Temperature 99.1 degrees Fahrenheit Jun, Heart Rate repeat:90 bpm Jun, Respiratory Rate 20 bpm Jun, Oximetry 98 % Jun, BMI 24.63 kg/m2 Jun, Blood pressure systolic 120 mmHg Jun, Blood pressure diastolic 76 mmHg Jun, MEDICATIONS Medication SIG (Take, Route, Frequency, Duration) Notes Start Da te End Date Status Pantoprazole Sodium 40 MG 1 tablet Orally Once a day after 3 months need to switch to 20mg dose August, Active Docusate Sodium 100 MG 1 capsule Orally Twice a day for 30 days Mar, Active Albuterol Sulfate HFA 108 (90 Base) MCG/ACT 1 puff as needed Inhalation every 4 hrs for 30 days prn Mar, Active Active Iron (Ferrous Sulfate) 325 (65 fe) mg 1 tablet Orally Once a day for 30 days Mar, Active Probiotic - as directed Orally Activ e Famotidine 20 MG 1 tablet Orally Twice a day for 30 days In addition to Protonix. Jan, Active PROCEDURES No Information RESULTS No Results REASON FOR VISIT growth in genital area, pt states its painful, pt states it started yesterday an d over night gotten bigger not itching at this time, pt also wants to do another chalymdia test, Betsy Snyder MEDICAL (GENERAL) HISTORY Type Description Date Medical History Anxiety and panic attacks, patient repor tamela Medical History Depression, patient reported Medical History Scoliosis Medical History asthma - mild intermittent Surgical History Tubes in ears Hospitalization History see surgeries Goals Section No Information Health Concerns No Information MEDICAL EQUIPMENT No Information MENTAL STATUS No Information FUNCTIONAL STATUS No Information ASSESSMENTS Encounter Date Diagnosis Assessment Notes Treatment Notes Treatm ent Clinical Notes Jun, Skin infection (ICD-10 - L08.9) Symptomatic care discussed. Oral antibiotic as ordered. F/u if not improving. Jun, Screening for STD (sexually transmitted disease) (ICD-10 - Z11.3) Pt wanting this rechecked- wanting sent to [facility] not state. Will treat if needed. Jun, Other sulfamethoxazole and trimethoprim (oral/injection) [Medication Leaflet] material was published PLAN OF TREATMENT Treatment Notes Assessment Notes Clinical Notes Skin infection Symptomatic care discussed. Oral antibiotic as ordered. F/u if not improving. Screening for STD (sexually transmitted disease) Pt wanting this rechecked- wanting sent to [facility] not state. Will treat if needed. Next Appt Details prn Reason:if symptoms worsen or fail to improve Provider Name:YONATAN ROLDAN, 2022-06-01 03 :40:00 PM, [address] [place] [address], [id number], [place], [address], Provider Name:YONATAN ROLDAN, 2022-06-08 03 :40:00 PM, [address] [facility] 2], [id number], [place], [address], Follow Up:prnif symptoms worsen or fail to improve Insurance Providers Payer Name Payer Address Payer Phone Insured Name Patient Relati onship to Insured Coverage Start Date Coverage End Date Subscriber Number Group Nu mber VICTOR[employer] Aet[employer] [facility] [address] [address] [facility] [phone] Harleen Israel Self - patient is the insured 2021 [id number] [employer] [id number] [facility] [id number] [phone] Harleen Israel Self - patient is the insured 2020 MEDICATIONS ADMINISTERED Medication Instructions Date of Administration Dosage Dexamethasone Oct, 4 mg ROCEPHIN 250 MG (IM) Mar, 1 mL
--- OUTSIDE RECORDS SUMMARY | 2022-06-15 18:23 | XMS REPORT ---
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 0478281 4 Problem Hypothyroidism, unspecified E03.9 confirmed 67243426 Problem Endocrine, nutritional and m etabolic diseases complicating , unspecified trimester O99.280 confirmed 90125197 2 Problem Anemia during in third trimester O99.013 confirmed Problem Hyperthyroidism E05.90 confirmed 3448 6009 Problem Seasonal allergic rhinitis, unspecified trigger J30.2 confirmed 920475462 Problem Gastroesophageal reflux disease without esophagitis K21.9 confirmed 213236180 Problem Thyrotoxicosis, unspecified without thyrotoxic crisis or storm E05.90 confirmed 73263290 ALLERGIES Allergen (clinical drug ingredient) Drug/Non Drug Allergy do cumented on EMR Reaction Allergy Type Onset Date Status azithromycin Azithromycin([facility] Code:[address]-54) hives Drug All ergy Active ENCOUNTERS from 1996 to 2022-05-31 Encounter Location Date [facility] [address] [id number] [address] Jul, WAYNE MOSHER IMMUNIZATIONS Vaccine Route Administration Date Status DTP Unknown 1996 Administered STATE FUNDED GARDASIL 9 (HPV) IM Intramuscular Feb 24, 2019 A dministered PRIVATE GARDASIL 9 (HPV) IM Intramuscular May 23, 2018 Admini stered PRIVATE TDAP (BOOSTRIX) IM Intramuscular Mar 30, 2022 Adminis tered Influenza (split), preservative free, 6-35 months Unknown May 14, 2003 Administered Influenza (split), preservative free, 6-35 months Unknown Apr 06, 2003 Administered DTP Unknown Apr 02, 1997 Administered DTP Unknown 1996 Administered influenza LAIV nasal (history) Unknown Mar 16, 2005 A dministered polio ipv (history) Unknown Jan 29, 2000 Administered varivax (history) Unknown Feb 12, 1997 Administered dt (history) Unknown October 23, 1998 Administered tenivac td (history) Unknown May 27, 2011 Administere d engerix hepatitis b pediatric/adolescent (history) Unknown Feb 12, 1997 Administered acthib hib prp-t (history) Unknown 1996 Admin istered acthib hib prp-t (history) Unknown 1996 Admin istered acthib hib prp-t (history) Unknown Apr 02, 1997 Admin istered hepatitis b pediatric (history) Unknown 1996 Administered hepatitis b pediatric (history) Unknown 1996 Administered OPV Unknown Apr 02, 1997 Administered OPV Unknown 1996 Administered mmr-II (history) Unknown Jan 29, 2000 Administered mmr-II (history) Unknown Feb 12, 1997 Administered PRIVATE GARDASIL 9 (HPV) IM Intramuscular August 29, 2018 Admini stered OPV Unknown 1996 Administered Influenza (split), preservative free, 6-35 months Unknown Mar 09, 2007 Administered Influenza (split), preservative free, 6-35 months Unknown Feb 15, 2004 Administered SOCIAL HISTORY Sex Assigned At : [...] Information RESULTS No Results REASON FOR VISIT Lab results MEDICAL (GENERAL) HISTORY Type Description Date Medical [...] TREATMENT Next Appt Details Provider Name:YONATAN ROLDAN, 2022-06-01 03 :40:00 PM, [address] [place] [address], [id number], [place], [address], Provider Name:YONATAN ROLDAN, 2022-06-08 03 :40:00 PM, [address] [place] [address], [id number], [place], [address], Insurance Providers Payer Name Payer Address Payer Phone Insured Name Patient Relati onship to Insured Coverage Start Date Coverage End Date Subscriber Number Group Nu mber [employer] [address] [facility] [id number] Harleen Israel Self - patient is the insured 2020 Aetna [facility] [address] [address] [facility] [phone] Harleen Israel Self - patient is the insured 2021 [id number] MEDICATIONS ADMINISTERED Medication Instructions Date of Administration Dosage ROCEPHIN 250 MG (IM) Mar, 1 mL Dexamethasone Oct, 4 mg
--- OUTSIDE RECORDS SUMMARY | 2022-06-15 18:23 | XMS REPORT | Encounter Summary ---
Author Author [facility] Organization [facility] Address Unknown Phone Unavailable Care Team Providers Care Delivery Engineer Name Role Phone PCP Unavailable Encounter Details Care Team Description Date Type Department Araceli Flower MD [address] [place] [address] 04/22/2022 Documentation [facility] [address] [place] [id number] Social History Date Tobacco Use Types Packs/Day Years Used Smoking Tobacco: Never Smokeless Tobacco: Never Comments Alcohol Use Standard Drinks/Week Never 0 (1 standard drink = 0.6 o z pure alcohol) Sex Assigned at Date Recorded Not on file documented as of this encounter Progress Notes * Araceli Flower MD - 04/22/2022 11:14 AM CST Jenni Please, notify patient Outside labs April 2022 Glucose 92, creatinine 0.45, sodium 138, potassium 3.8, calcium 6.2 Very low calcium? Laboratory error? Recommend follow-up with PCP for repeated labs. Alkaline phosphatase 127, elevated, remainder of liver function test normal. Hemoglobin 10.7, hematocrit 32.5, WBC 10.0, I ordered thyroid function tests. There are no thyroid function tests on the labs that were faxed Please, ask patient if she had them done. If not, she should have a lab slip Thank you Araceli Flower MD ATOLOGIST * Jenni Howard RN - 04/22/2022 11:14 AM CST Notified of lab results. Reviewed recommendation to follow up with PCP for repea tamela labs due to low calcium. Verbalized understanding. Spoke with Candy at lab. TFT were drawn. Will fax results. Confirmed correct fa x number. ATOLOGIST documented in this encounter Plan of Treatment Not on filedocumented as of this encounter Visit Diagnoses Not on filedocumented in this encounter
--- OUTSIDE RECORDS SUMMARY | 2022-06-15 18:23 | XMS REPORT | Encounter Summary ---
Author Author [facility] Organization [facility] Address Unknown Phone Unavailable Care Team Providers Care Change Control Specialist Name Role Phone PCP Unavailable Encounter Details Care Team Description Date Type Department Araceli Flower MD [address] [place] [address] 04/24/2022 Documentation [facility] [address] [place] [address] [id number] Social History Date Tobacco Use Types Packs/Day Years Used Smoking Tobacco: Never Smokeless Tobacco: Never Comments Alcohol Use Standard Drinks/Week Never 0 (1 standard drink = 0.6 o z pure alcohol) Sex Assigned at Date Recorded Not on file documented as of this encounter Progress Notes * Araceli Flower MD - 04/24/2022 3:43 PM CST Jenni, Please notify pt: TSH 0.13, fT4 1.3, fT3 2.9. Subclinical hyperthyroidism. fT3 and fT4 still normal. No need for tx Check TSH, fT4, fT3 in 4 weeks. Please mail lab slip to pt to do closed to home F/up 6 weeks after delivery, as planned Thank you Suraj Flower MD ET PRESS OPERATOR documented in this encounter Plan of Treatment Not on filedocumented as of this encounter Procedures Comments Procedure Name Priority Date/Time Associated Diag nosis LAB OUTSIDE RECORD Routine 04/15/2022 THYROID STIMULATING Routine 04/15/2022 HORMONE T4 FREE Routine 04/15/2022 documented in this encounter Results * Lab Outside Record (04/15/2022) Anatomical Location / Laterality Collection Method / Volume Josey ection Time Received Time Specimen (Source) 04/15/2022 Blood Historical Provider LAB BLOOD ORDERABLES MD * Thyroid Stimulating Hormone (04/15/2022) Pathologist Signature Component Value Ref Test Method Analysis Performed A t Range Time TSH 0.13 Anatomical Location / Laterality Collection Method / Volume Josey ection Time Received Time Specimen (Source) Blood (Venous) Araceli Flower MD LAB BLOOD ORDERABLES * T4 Free (04/15/2022) Pathologist Signature Component Value Ref Test Method Analysis Performed A t Range Time T4 Free 1.3 Anatomical Location / Laterality Collection Method / Volume Josey ection Time Received Time Specimen (Source) Blood (Venous) Araceli Flower MD LAB BLOOD ORDERABLES documented in this encounter Visit Diagnoses Not on filedocumented in this encounter
--- OUTSIDE RECORDS SUMMARY | 2022-06-15 18:23 | XMS REPORT | Clinical Summary ---
Author Author [facility] Address Unknown Phone Unavailable Care Team Providers Care Nursery Rn Name Role Phone PCP Unavailable Allergies Comments Active Allergy Reactions Severity Noted Date Other reaction(s): hives Azithromycin 11/05/2021 Medications End Date Status Medication Sig Dispensed Refills Start Date Active albuterol 1 puff as 0 (PROAIR/PROVENTIL/VENTOLI needed 1 N) 90 mcg/actuation HFA inhaler Active pantoprazole (PROTONIX) Take 1 tablet 0 40 MG tablet by mouth. 2 Active 25/iron Take by 0 fum/folic/dha (-1 mouth. ORAL) Active UNABLE TO FIND Probiotic 0 Active Problems Problem Noted Date Thyrotoxicosis during 12/03/2021 Encounters Care Team Description Date Type Specialty Jenni Howard RN Thyrotoxicosis during (Primary Dx) 04/28/2022 Orders Only Endocrinology Araceli Flower MD 04/24/2022 Documentation Endocrinology Araceli Flower MD 04/23/2022 Documentation Endocrinology Araceli Flower MD 04/22/2022 Documentation Endocrinology from Last 3 Months Family History Medical History Relation Name Comments Thyroid disease Maternal Grandfather Relation Name Status Comments Father Alive Maternal Grandfather Mother Alive Social History Date Tobacco Use Types Packs/Day Years Used Smoking Tobacco: Never Smokeless Tobacco: Never Comments Alcohol Use Standard Drinks/Week Never 0 (1 standard drink = 0.6 o z pure alcohol) Sex Assigned at Date Recorded Not on file Last Filed Vital Signs Reading Time Taken Comments Vital Sign 118/62 12/03/2021 10:55 AM CDT Blood Pressure 98 12/03/2021 10:55 AM CDT Pulse - - Temperature - - Respiratory Rate 98% 12/03/2021 10:55 AM CDT Oxygen Saturation - - Inhaled Oxygen Concentration 80.5 kg (177 lb 6.4 oz) 12/03/2021 10:55 AM CDT pregancy homar ght Weight 162.6 cm (5' 4") 12/03/2021 10:55 AM CDT Height 30.45 12/03/2021 10:55 AM CDT Body Mass Index Plan of Treatment Health Maintenance Due Date Last Done Comments Hepatitis C Screen 1996 Td/Tdap# 1996 COVID-19 Vaccine (#1) 1996 Cervical Cancer Screening 01/26/2017 via Pap Smear Influenza Vaccine (#1) 2022 03/09/2007, 03/16/2005, 02/15/2004, Additional history exists Social Determinants of 05/03/2022 Health# HPV Vaccine Completed 02/24/2019, 08/29/2018, 05/23/2018 Pneumococcal Vaccine: Aged Out No longer eligib le based on patient's age to Pediatrics (0 to 5 Years) complete this topic and At-Risk Patients (6 to 64 Years) Procedures Comments Procedure Name Priority Date/Time Associated Diag nosis LAB OUTSIDE RECORD Routine 04/15/2022 THYROID STIMULATING Routine 04/15/2022 HORMONE T4 FREE Routine 04/15/2022 LAB OUTSIDE RECORD Routine 04/15/2022 T3 FREE Routine 04/15/2022 from Last 3 Months Results * Lab Outside Record (04/15/2022) Only the most recent of 2 results within the time period is included. Anatomical Location / Laterality Collection Method / Volume Josey ection Time Received Time Specimen (Source) 04/15/2022 Blood Historical Provider LAB BLOOD ORDERABLES * Thyroid Stimulating Hormone (04/15/2022) Pathologist Signature [...] Araceli Flower MD LAB BLOOD ORDERABLES * T3 Free (04/15/2022) Pathologist Signature Component Value Ref Test Method Analysis Performed A t Range Time T3 Free 2.9 Anatomical Location / Laterality Collection Method / Volume Josey ection Time Received Time Specimen (Source) Blood (Venous) Araceli Flower MD LAB BLOOD ORDERABLES from Last 3 Months Insurance Type Payer Benefit Subscriber ID Effective Phone Address Plan / Dates Group MEDICAID MANAGED CARE [employer] [id number] 2021-P BOX ([place]) BETTER resent [id number] [facility] [id number]
--- OUTSIDE RECORDS SUMMARY | 2022-06-15 18:23 | XMS REPORT | Encounter Summary ---
Author Author [facility] Address Unknown Phone Unavailable Care Team Providers Care Fur Tinter Name Role Phone PCP Unavailable Encounter Details Care Team Description Date Type Department Araceli Flower MD [address] [place] [address] [phone] 04/23/2022 Documentation [facility] [address] [place] [address] [id number] Social History Date Tobacco Use Types Packs/Day Years Used Smoking Tobacco: Never Smokeless Tobacco: Never Comments Alcohol Use Standard Drinks/Week Never 0 (1 standard drink = 0.6 o z pure alcohol) Sex Assigned at Date Recorded Not on file documented as of this encounter Plan of Treatment Not on filedocumented as of this encounter Procedures Comments Procedure Name Priority Date/Time Associated Diag nosis LAB OUTSIDE RECORD Routine 04/15/2022 T3 FREE Routine 04/15/2022 documented in this encounter Results * Lab Outside Record (04/15/2022) Anatomical Location / Laterality Collection Method / Volume Josey ection Time Received Time Specimen (Source) 04/15/2022 Blood Historical Provider LAB BLOOD ORDERABLES * T3 Free (04/15/2022) [...]
--- OUTSIDE RECORDS SUMMARY | 2022-06-15 18:23 | XMS REPORT ---
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 1241091 4 Problem Hypothyroidism, unspecified E03.9 confirmed [id number] Problem care in third trimester Z34.93 conf irmed [id number] Problem Anemia during in third trimester O99.013 confirmed Problem Endocrine, nutritional and m etabolic diseases complicating , unspecified trimester O99.280 confirmed 70269725 2 Problem Hyperthyroidism E05.90 confirmed 3448 6009 Problem Seasonal allergic rhinitis, unspecified trigger J30.2 confirmed 404723769 Problem Gastroesophageal reflux disease without esophagitis K21.9 confirmed 010454602 Problem Thyrotoxicosis, unspecified without thyrotoxic crisis or storm E05.90 confirmed 15719363 ALLERGIES Allergen (clinical drug ingredient) Drug/Non Drug Allergy do cumented on EMR Reaction Allergy Type Onset Date Status azithromycin Azithromycin([facility] Code:[address]-81) hives Drug All ergy Active ENCOUNTERS from 1996 to 2022-04-29 Encounter Location Date Provider Diagnosis [facility] [address] [id number] [address] May, WAYNE VIDHI Hyperthyroidism E05. 90 and Constipation, unspecified constipation type K59.00 IMMUNIZATIONS Vaccine Route Administration Date Status DTP Unknown Apr 02, 1997 Administered DTP Unknown 1996 Administered DTP Unknown 1996 Administered PRIVATE GARDASIL 9 (HPV) IM Intramuscular May 23, 2018 Admini stered Influenza (split), preservative free, 6-35 months Unknown Mar 09, 2007 Administered Influenza (split), preservative free, 6-35 months Unknown Feb 15, 2004 Administered Influenza (split), preservative free, 6-35 months Unknown May 14, 2003 Administered Influenza (split), preservative free, 6-35 months Unknown Apr 06, 2003 Administered PRIVATE TDAP (BOOSTRIX) IM Intramuscular Mar 30, 2022 Adminis christopher tenivac td (history) Unknown May 27, 2011 Administere d engerix hepatitis b pediatric/adolescent (history) Unknown Feb 12, 1997 Administered acthib hib prp-t (history) Unknown 1996 Admin istered acthib hib prp-t (history) Unknown 1996 Admin istered acthib hib prp-t (history) Unknown Apr 02, 1997 Admin istered influenza LAIV nasal (history) Unknown Mar 16, 2005 A dministered STATE FUNDED GARDASIL 9 (HPV) IM Intramuscular Feb 24, 2019 A dministered PRIVATE GARDASIL 9 (HPV) IM Intramuscular August 29, 2018 Admini pauline mmr-II (history) Unknown Jan 29, 2000 Administered mmr-II (history) Unknown Feb 12, 1997 Administered hepatitis b pediatric (history) Unknown 1996 Administered hepatitis b pediatric (history) Unknown 1996 Administered dt (history) Unknown October 23, 1998 Administered varivax (history) Unknown Feb 12, 1997 Administered polio ipv (history) Unknown Jan 29, 2000 Administered OPV Unknown Apr 02, 1997 Administered OPV Unknown 1996 Administered OPV Unknown 1996 Administered SOCIAL HISTORY Sex Assigned At : [...] No Information VITAL SIGNS Height 65 in May, Height-cm 165.1 cm May, Weight 150 lbs May, Weight-kg 68.04 kg May, Temperature 98.7 degrees Fahrenheit May, Heart Rate 90 bpm May, Respiratory Rate 20 bpm May, Oximetry 98 % May, BMI 24.96 kg/m2 May, Blood pressure systolic 110 mmHg May, Blood pressure diastolic 70 mmHg May, MEDICATIONS Medication SIG (Take, Route, Frequency, Duration) Notes Start Da te End Date Status Albuterol Sulfate HFA 108 (90 Base) MCG/ACT 1 puff as needed Inhalation every 4 hrs for 30 days prn Mar, Active Famotidine 20 MG 1 tablet Orally Twice a day for 30 days In addition to Protonix. Jan, Active Active Docusate Sodium 100 MG 1 capsule Orally Twice a day for 30 days Mar, Active Probiotic - as directed Orally Activ e Pantoprazole Sodium 40 MG 1 tablet Orally Once a day after 3 months need to switch to 20mg dose August, Active Iron (Ferrous Sulfate) 325 (65 fe) mg 1 tablet Orally Once a day for 30 days Mar, Active PROCEDURES No Information RESULTS No Results REASON FOR VISIT review thyroid labs, Betsy Dennison MEDICAL (GENERAL) HISTORY Type Description Date Medical [...] Notes Treatment Notes Treatm ent Clinical Notes May, Hyperthyroidism (ICD-10 - E05.90) Labs reviewed- pt has appt with wall washer August 2020. pt feeling ok- continue to monitor levels May, Constipation, unspecified constipation type (ICD -10 - K59.00) Constipation: Care Instructions material was published Discussed trying to reset bowels since r ecent antibiotic use- Miralax 3 capfuls x 3 days then 1 capful daily until having regular soft BM daily then can wean down to keep at 1 soft BM daily Continue probiotic and increasing water intake and dietary fiber. Should symptoms worsen or fail to improve notify clinic. PLAN OF TREATMENT Treatment Notes Assessment Notes Clinical Notes Hyperthyroidism Labs reviewed- pt has appt w [facility] wall washer August 2020. pt feeling ok- continue to monitor levels Constipation, unspecified constipation type Constipati on: Care Instructions material was published Discussed trying to reset bowels since r ecent antibiotic use- Miralax 3 capfuls x 3 days then 1 capful daily until having regular soft BM daily then can wean down to keep at 1 soft BM daily Continue probiotic and increasing water intake and dietary fiber. Should symptoms worsen or fail to improve notify clinic. Next Appt Details prn,6 Months Reason:M Provider Name:YONATAN ROLDAN, 2022-05-06 03 :20:00 PM, [address] [facility], [id number], [place], [address], Follow Up:prn,6 MonthsCHM Insurance Providers Payer Name Payer Address Payer Phone Insured Name Patient Relati onship to Insured Coverage Start Date Coverage End Date Subscriber Number Group Nu [employer] [id number] [facility] [id number] Harleen Israel Self - patient is the insured [address] [address] [facility] [address] Harleen Israel Self - patient is the insured 2021 [id number] MEDICATIONS ADMINISTERED Medication Instructions Date of Administration Dosage Dexamethasone Oct, 4 mg ROCEPHIN 250 MG (IM) Mar, 1 mL
[2022-06-15] MEDS ORDERED: MINERAL OIL 30 ML UDC TOP PRN (20:00)
[2022-06-15] MEDS ORDERED: LACTATED RINGERS 1,000 ML IV SCH (20:00)
[2022-06-15] MEDS ORDERED: TERBUTALINE INJ 1 MG/ML (BRETHINE) AMP SC PRN (20:00)
[2022-06-15 20:16] LABS: BASOPHILS % (AUTO) 1 % (0-10); EOSINOPHILS # (AUTO) 0.1 10^3/uL (0.0-0.3); EOSINOPHILS % (AUTO) 1 % (0-10); HEMATOCRIT 32 % (35-52); HEMOGLOBIN 10.5 g/dL (11.5-16.0); LYMPHOCYTES # (AUTO) 2.2 10^3/uL (1.0-4.0); LYMPHOCYTES % (AUTO) 25 % (12-44); MEAN CORPUSCULAR HEMOGLOBIN 29 pg (25-34); MEAN CORPUSCULAR HGB CONC 33 g/dL (32-36); MEAN CORPUSCULAR VOLUME 86 fL (80-99); MEAN PLATELET VOLUME 11.9 fL (9.0-12.2); MONOCYTES # (AUTO) 0.5 10^3/uL (0.0-1.0); MONOCYTES % (AUTO) 6 % (0-12); NEUTROPHILS # (AUTO) 5.9 10^3/uL (1.8-7.8); NEUTROPHILS % (AUTO) 67 % (42-75); PLATELET COUNT 219 10^3/uL (130-400); WHITE BLOOD COUNT 8.8 10^3/uL (4.3-11.0)
[2022-06-15] MEDS ORDERED: D5 LR IV SOLUTION 1,000 ML IV ONE (20:26)
[2022-06-15] MEDS: D5 LR IV SOLUTION 1,000 ML IV SCH (20:42)
[2022-06-15] MEDS: CATHETER FLUSH 10 ML SYR IV SCH (22:00)
[2022-06-16] VITALS (54 sets, daily range): BP systolic 97–132; BP diastolic 55–91
[2022-06-16] MEDS ORDERED: BUTORPHANOL INJ 2 MG/ML (STADOL) VIAL IV PRN ×2 (03:30→04:00)
[2022-06-16] MEDS ORDERED: BUTORPHANOL INJ 2 MG/ML (STADOL) VIAL ONE (03:32)
[2022-06-16] MEDS: D5 LR IV SOLUTION 1,000 ML IV SCH ×2 (04:39→12:00)
[2022-06-16] MEDS: CATHETER FLUSH 10 ML SYR IV SCH (05:26)
--- NOTE | 2022-06-16 07:01 | History & Physical-OB ---
PHAMANA LILIA 06/16/22 0700: OB - Chief Complaint & HPI Date/Time Date of Admission: Date of Admission: Jun 15, 2022 at 18:19 Date seen by a Provider: Jun 16, 2022 Time Seen by a Provider: 07:10 Chief Complaint/History OB-Reason for Admission/Chief: Induction of Labor Hx : 2 Hx Para: 0 Expected Date of Delivery: Jun 11, 2022 Gestational Age in Weeks: 40 Gestational Age in Days: 4 Indication for induction: post dates Admission Nurse Assessment Rev: Yes Allergies and Home Medications Allergies Coded Allergies: azithromycin (Verified Allergy, Mild, Hives, 04/13/22) latex (Verified Allergy, Mild, Itching, 06/16/22) Patient Home Medication List Home Medication List Reviewed: Yes Albuterol Sulfate (Ventolin Hfa) 90 Mcg Hfa.aer.ad, 18 GM INH Q4H PRN for WHEEZING Prescribed by: JUAN SEO on 03/05/221128 Famotidine (Acid Policy And Planning Manager (FAMOTIDINE)) 20 Mg Tablet, 20 MG PO DAILY, (Reported) Entered as Reported by: NISHA HURTADO on 04/13/2212 Ferrous Sulfate (Ferrous Sulfate) 325 Mg (65 Mg Iron) Tablet, 325 MG PO DAILY, (Reported) Entered as Reported by: NISHA HURTADO on 04/13/2212 Lactobacillus Rhamnosus R0011 (Probiotic Digestive Care) Unknown Strength Capsule, Unknown Dose PO DAILY, (Reported) Entered as Reported by: NISHA HURTADO on 04/13/2212 Ondansetron (Ondansetron Odt) 4 Mg Tab.rapdis, 4 MG SL Q6H PRN for NAUSEA/VOMITING Prescribed by: JUAN SEO on 03/05/221128 Vit W-Ca,Fe,FA(<1 mg) ( Formula) 28 Mg Iron-800 Mcg Tablet, 1 EACH PO DAILY, (Reported) Entered as Reported by: NISHA HURTADO on 04/13/2212 OB - History Hx of Present Care: Yes Ultrasounds: Normal mid trimester US Obstetrical Complications: None Medical Complications: None Information Induced Hypertension: No Maternal Gestational Diabetes: No Obstetrical History Hx Termination: No Hx Total # of Abortions (Spona: 1 Hx Multiple Gestation: No Hx Ectopic : No Hx Stillbirth: No Hx Complication: No Hx Induced Hypertens: No Hx Maternal Gestational Diabet: No Patient Past Medical History PMH includes scoliosis, depression, and anxiety. Social History/Family History Alcohol Use: Denies Use Recreational Drug Use: No Smoking Cessation: Never smoker 2nd Hand Smoke Exposure: No Immunizations Influenza Vaccine Up-to-Date: No; Not Current Hepatitis A: Yes Hepatitis B: Yes Tetanus Booster (TDap): Less than 5yrs Rubella: immune RPR/VDRL: Negative GBS Status: Negative HBsAG: Negative OB - Admission Exam Physical Exam Vitals: Vital Signs 06/16/22 06/16/22 03:05 05:05 Temp 36.8 Pulse 77 Resp 18 B/P (MAP) 119/77 (91) Pulse Ox 96 O2 Delivery Room Air HEENT: Moist Membranes Heart: Rhythm Normal Lungs: Clear Abdomen: Non tender Membranes: Intact Heart Rate: 120's Accelerations: Accelerations Present Decelerations: No Decelerations Short Term Variability: Present Snf Variability: Average (6-25) Contractions on Admission: < 5 Minutes Apart Date/Time Contractions Began;: Yesterday evening Frequency of Contractions: Every 3-4 minutes Duration: A minute Intensity: Moderate Labs Laboratory Tests Test 06/15/22 19:45 06/15/22 20:22 Range/Units White Blood Count 8.8 4.3-11.0 10^3/uL Red Blood Count 3.69 L 3.80-5.11 10^6/uL Hemoglobin 10.5 L 11.5-16.0 g/dL Hematocrit 32 L 35-52 % Mean Corpuscular Volume 86 80-99 fL Mean Corpuscular Hemoglobin 29 25-34 pg Mean Corpuscular Hemoglobin Concent 33 32-36 g/dL Red Cell Distribution Width 16.9 H 10.0-14.5 % Platelet Count 219 130-400 10^3/uL Mean Platelet Volume 11.9 9.0-12.2 fL Immature Granulocyte % (Auto) 1 % Neutrophils (%) (Auto) 67 42-75 % Lymphocytes (%) (Auto) 25 12-44 % Monocytes (%) (Auto) 6 0-12 % Eosinophils (%) (Auto) 1 0-10 % Basophils (%) (Auto) 1 0-10 % Neutrophils # (Auto) 5.9 1.8-7.8 10^3/uL Lymphocytes # (Auto) 2.2 1.0-4.0 10^3/uL Monocytes # (Auto) 0.5 0.0-1.0 10^3/uL Eosinophils # (Auto) 0.1 0.0-0.3 10^3/uL Basophils # (Auto) 0.0 0.0-0.1 10^3/uL Immature Granulocyte # (Auto) 0.1 0.0-0.1 10^3/uL OB - Assessment/Plan/Diagnosis Assessment Assessment: induction of labor Admission Dx 27yo F @ 40w4d presenting for induction of labor. Patient has not had any complications. Patient was admitted yesterday evening for cervical ripening. Patient began having contractions yesterday evening that have progressively gotten closer together. Patient was not able to sleep well last night because of contractions. She says her contractions are 3-4 minutes apart now and she is feeling a lot of pressure in her lower abdomen. Patient denies vaginal bleeding, gush of fluid, fevers, chills, chest pain, shortness of breath, and lower extremity edema. Admission Status: Observation Plan Plan: Induction Induction Method: per Misoprostol Protocol Other Plan Amniotomy will be performed. Cervical checks will be done to monitor progression of labor and monitoring will be done as well. Expectant management will be done. YONATAN ROLDAN MD 06/16/22 1646: Allergies and Home Medications Allergies Coded Allergies: azithromycin (Verified Allergy, Mild, Hives, 04/13/22) latex (Verified Allergy, Mild, Itching, 06/16/22) Patient Home Medication List Albuterol Sulfate (Ventolin Hfa) 90 Mcg Hfa.aer.ad, 18 GM INH Q4H PRN for WHEEZING Prescribed by: JUAN SEO on 03/05/22 1129 Famotidine (Acid Policy And Planning Manager (FAMOTIDINE)) 20 Mg Tablet, 20 MG PO DAILY, (Reported) Entered as Reported by: NISHA HURTADO on 04/13/22 001 Ferrous Sulfate (Ferrous Sulfate) 325 Mg (65 Mg Iron) Tablet, 325 MG PO DAILY, (Reported) Entered as Reported by: NISHA HURTADO on 04/13/2212 Lactobacillus Rhamnosus R0011 (Probiotic Digestive Care) Unknown Strength Capsule, Unknown Dose PO DAILY, (Reported) Entered as Reported by: NISHA HURTADO on 04/13/2212 Ondansetron (Ondansetron Odt) 4 Mg Tab.rapdis, 4 MG SL Q6H PRN for NAUSEA/VOMITING Prescribed by: JUAN SEO on 03/05/22 1129 Vit W-Ca,Fe,FA(<1 mg) ( Formula) 28 Mg Iron-800 Mcg Tablet, 1 EACH PO DAILY, (Reported) Entered as Reported by: NISHA HURTADO on 04/13/2212 Supervisory-Addendum Brief Supervisory Addendum Verification and Attestation of Medical Student E/M Service A medical student performed and documented this service in my presence. I reviewed and verified all information documented by the medical student and made modifications to such information, when appropriate. I personally performed the physical exam and medical decision making. Yonatan Roldan, Jun 16, 2022,16:46 ANA LILIA PHAM Jun 16, 2022 07:00 YONATAN ROLDAN MD Jun 16, 2022 16:46
[2022-06-16] MEDS ORDERED: fentaNYL 2 mcg/ml BUPIVA 0.125 100 ML ONE (07:40)
[2022-06-16] MEDS ORDERED: fentaNYL INJ 100 MCG/2 ML AMP ONE (08:25)
[2022-06-16] MEDS ORDERED: BUPIVACAINE 0.25% 10 ML (SENSORCAINE) VIAL ONE (08:25)
[2022-06-16] MEDS ORDERED: diphenhydrAMINE 50 MG/ML INJ (BENADRYL) IV PRN (08:30)
[2022-06-16] MEDS ORDERED: NALOXONE 0.4 MG/ML 1 ML (NARCAN) VIAL IV PRN (08:30)
[2022-06-16] MEDS ORDERED: fentaNYL 2 mcg/ml BUPIVA 0.125 100 ML EPI SCH (08:30)
[2022-06-16] MEDS ORDERED: LACTATED RINGERS 1,000 ML IV SCH (08:30)
[2022-06-16] MEDS ORDERED: ONDANSETRON 4 MG/2 ML (SDV) Z0FRAN IV PRN (08:30)
[2022-06-16] MEDS ORDERED: OXYTOCIN PRE-MIX DRIP 500 ML IV SCH (09:45)
--- NOTE | 2022-06-16 10:17 | Labor Progress Note ---
Labor Progress Note Labor Progress Note Date Seen by Provider: Jun 16, 2022 Time Seen by Provider: 09:45 Subjective: Pt denies complaints. Feeling better after epidural placement Objective: /-1 AROM clear Assessment/Plan: Harleen Israel is a (27 /Para 2 / 0,Gestational Age (wks)40.4 here for IOL for post dates CEFM/TOCO AROM clear Epidural in place Will start augmentation with pitocin GBS neg Vitals - Labs Vital Signs - I&O Vital Signs Date Time Temp Pulse Resp B/P (MAP) Pulse Ox O2 Delivery O2 Flow Rate FiO2 06/16/22 09:30 81 18 115/62 (79) 100 Room Air 06/16/22 09:28 89 18 116/73 (87) 97 Room Air 06/16/22 09:25 88 18 118/75 (89) 97 Room Air 06/16/22 09:20 83 18 119/77 (91) 97 Room Air 06/16/22 09:15 76 18 112/69 (83) 98 Room Air 06/16/22 09:12 82 18 111/68 (82) 97 Room Air 06/16/22 09:09 80 18 112/69 (83) 97 Room Air 06/16/22 09:06 81 18 111/68 (82) 98 Room Air 06/16/22 09:03 82 18 113/65 (81) 98 Room Air 06/16/22 09:00 92 18 117/69 (85) Room Air 06/16/22 08:55 89 18 114/67 (83) 98 Room Air 06/16/22 08:50 100 18 124/71 (88) 100 Room Air 06/16/22 08:45 92 18 117/69 (85) Room Air 06/16/22 08:43 107 18 129/77 (94) 100 Room Air 06/16/22 08:41 112 18 128/77 (94) 100 Room Air 06/16/22 08:38 123 18 126/73 (90) 100 Room Air 06/16/22 08:35 112 18 129/72 (91) 99 Room Air 06/16/22 08:10 117 18 129/91 (104) Room Air 06/16/22 07:40 36.3 83 18 120/70 (87) Room Air 06/16/22 07:07 96 18 116/59 (78) Room Air 06/16/22 06:05 91 18 113/77 (89) Room Air 06/16/22 05:05 36.8 77 18 119/77 (91) Room Air 06/16/22 04:05 78 18 107/64 (78) Room Air 06/16/22 03:05 36.9 80 18 117/71 (86) 96 Room Air 06/16/22 02:05 86 18 129/63 (85) Room Air 06/16/22 01:31 79 18 106/68 (81) Room Air 06/16/22 01:01 83 18 114/67 (83) Room Air 06/16/22 00:31 76 18 118/71 (87) Room Air 06/16/22 00:02 36.9 79 18 118/71 (87) 96 Room Air 06/15/22 23:31 80 18 116/71 (86) Room Air 06/15/22 23:01 83 18 108/65 (79) Room Air 06/15/22 22:31 82 18 112/69 (83) Room Air 06/15/22 22:02 83 18 109/66 (80) Room Air 06/15/22 21:30 83 18 118/72 (87) Room Air 06/15/22 21:00 80 18 119/75 (90) Room Air 06/15/22 19:27 37.1 89 18 96 Room Air 06/15/22 19:27 37.1 89 18 126/86 (99) 96 Room Air I & O 06/16/22 07:00 Intake Total 2000 ml Balance 2000 ml Labs Laboratory Tests 06/15/22 19:45: White Blood Count 8.8, Red Blood Count 3.69L, Hemoglobin 10.5L, Hematocrit 32L, Mean Corpuscular Volume 86, Mean Corpuscular Hemoglobin 29, Mean Corpuscular Hemoglobin Concent 33, Red Cell Distribution Width 16.9H, Platelet Count 219, Mean Platelet Volume 11.9, Immature Granulocyte % (Auto) 1, Neutrophils (%) (Auto) 67, Lymphocytes (%) (Auto) 25, Monocytes (%) (Auto) 6, Eosinophils (%) (Auto) 1, Basophils (%) (Auto) 1, Neutrophils # (Auto) 5.9, Lymphocytes # (Auto) 2.2, Monocytes # (Auto) 0.5, Eosinophils # (Auto) 0.1, Basophils # (Auto) 0.0, Immature Granulocyte # (Auto) 0.1 06/15/22 20:22: YONATAN ROLDAN MD Jun 16, 2022 10:17
[2022-06-16] MEDS ORDERED: LIDOCAINE 1% INJ 10 ML VIAL ONE (14:21)
[2022-06-16] MEDS ORDERED: LIDOCAINE 1% INJ 20 ML VIAL INJ ONE (14:22)
[2022-06-16] MEDS: OXYTOCIN PRE-MIX DRIP 500 ML IV SCH ×2 (14:49→19:40)
[2022-06-16] MEDS ORDERED: WITCH HAZEL(TUCKS) 40 EA JAR TOP PRN ×2 (16:45→17:45)
[2022-06-16] MEDS ORDERED: BENZOCAINE/MENTHOL (DERMOPLAST) 56 ML CAN TP PRN (16:45)
--- NOTE | 2022-06-16 16:48 | OB Labor & Delivery Record ---
Vag Delivery Note Vag Delivery Note Date of Delivery: 06/16/22 Preoperative Diagnosis: Harleen Israel is a (27 /Para 2 / 0, Gestational Age (wks)40.4 here for IOL for post dates Postoperative Diagnosis: Same Surgeon: YONATAN ROLDAN MD Teachers' Aide: None Anesthesia: Epidural Delivery Type: @ 1407 Findings: Viable male infant, apgars 4/8/9, weight 7#4, 3289 grams Lacerations: 2nd degree perineal laceration and left labial Intact placenta with 3 vessel cord. Nuchal cord x1. No body cord or shoulder dystocia Low Vacuum extraction Estimated Blood Loss: 350 ml Complications: None Condition: Stable Description of Procedure: The patient is a 27 year old female who presented for IOL. She was admitted and informed consent was obtained. Her labor course was remarkable for pitocin augmentation and low vacuum extraction due to bradycardia. She progressed to complete dilatation and began to push. She was then set up for delivery. The 's head was delivered atraumatically in the TEA position after low vacuum extraction, vacuum placed on 1404, 1405 pop off, vacuum replaced @ 1406 and head was delivered at 1407. The shoulders and remainder of the 's body were then delivered without difficulty. Upon delivery, the was pale and limp, cord was clamped and cut and baby was taken to warmer by nursery nurse immediately. An intact placenta with 3-vessel cord delivered via Natacha and there was found to be minimal bleeding.~ Vigorous fundal massage was performed and the fundus was found to be firm. IV oxytocin was given. Examination of the vagina and perineum revealed a 2nd degree perineal and left labial laceration repaired in the usual fashion with 3-0 vicryl rapide suture. Following the repair, sponge, instrument and needle counts were correct. Mom and baby were both in stable condition in the labor suite. Vitals - Labs Vital Signs - I&O Vital Signs Date Time Temp Pulse Resp B/P (MAP) Pulse Ox O2 Delivery O2 Flow Rate FiO2 06/16/22 14:00 18 Non Rebreather 15.00 06/16/22 13:45 18 Non Rebreather 15.00 06/16/22 13:30 37.2 18 107/77 (87) Room Air 06/16/22 13:15 91 18 119/79 (92) Room Air 06/16/22 13:00 104 18 121/81 (94) Room Air 06/16/22 12:45 98 18 120/75 (90) Room Air 06/16/22 12:30 99 18 108/62 (77) Room Air 06/16/22 12:15 106 18 114/67 (83) Room Air 06/16/22 12:00 88 18 119/75 (90) Room Air 06/16/22 11:45 37.0 86 18 132/69 (90) Room Air 06/16/22 11:30 82 18 105/58 (74) Room Air 06/16/22 11:15 89 18 104/56 (72) Room Air 06/16/22 11:00 89 18 103/56 (72) Room Air 06/16/22 10:45 Room Air 06/16/22 10:30 37.1 76 18 102/56 (71) Room Air 06/16/22 10:15 93 18 117/71 (86) Room Air 06/16/22 10:00 Room Air 06/16/22 09:50 81 18 99/55 (70) Room Air 06/16/22 09:45 82 18 110/72 (85) 100 Room Air 06/16/22 09:30 81 18 115/62 (79) 100 Room Air 06/16/22 09:28 89 18 116/73 (87) 97 Room Air 06/16/22 09:25 88 18 118/75 (89) 97 Room Air 06/16/22 09:20 83 18 119/77 (91) 97 Room Air 06/16/22 09:15 76 18 112/69 (83) 98 Room Air 06/16/22 09:12 82 18 111/68 (82) 97 Room Air 06/16/22 09:09 80 18 112/69 (83) 97 Room Air 06/16/22 09:06 81 18 111/68 (82) 98 Room Air 06/16/22 09:03 82 18 113/65 (81) 98 Room Air 06/16/22 09:00 92 18 117/69 (85) Room Air 06/16/22 08:55 89 18 114/67 (83) 98 Room Air 06/16/22 08:50 100 18 124/71 (88) 100 Room Air 06/16/22 08:45 92 18 117/69 (85) Room Air 06/16/22 08:43 107 18 129/77 (94) 100 Room Air 06/16/22 08:41 112 18 128/77 (94) 100 Room Air 06/16/22 08:38 123 18 126/73 (90) 100 Room Air 06/16/22 08:35 112 18 129/72 (91) 99 Room Air 06/16/22 08:10 117 18 129/91 (104) Room Air 06/16/22 07:40 36.3 83 18 120/70 (87) Room Air 06/16/22 07:07 96 18 116/59 (78) Room Air 06/16/22 06:05 91 18 113/77 (89) Room Air 06/16/22 05:05 36.8 77 18 119/77 (91) Room Air 06/16/22 04:05 78 18 107/64 (78) Room Air 06/16/22 03:05 36.9 80 18 117/71 (86) 96 Room Air 06/16/22 02:05 86 18 129/63 (85) Room Air 06/16/22 01:31 79 18 106/68 (81) Room Air 06/16/22 01:01 83 18 114/67 (83) Room Air 06/16/22 00:31 76 18 118/71 (87) Room Air 06/16/22 00:02 36.9 79 18 118/71 (87) 96 Room Air 06/15/22 23:31 80 18 116/71 (86) Room Air 06/15/22 23:01 83 18 108/65 (79) Room Air 06/15/22 22:31 82 18 112/69 (83) Room Air 06/15/22 22:02 83 18 109/66 (80) Room Air 06/15/22 21:30 83 18 118/72 (87) Room Air 06/15/22 21:00 80 18 119/75 (90) Room Air 06/15/22 19:27 37.1 89 18 96 Room Air 06/15/22 19:27 37.1 89 18 126/86 (99) 96 Room Air I & O 06/16/22 06:59 Intake Total 2000 ml Balance 2000 ml Labs Laboratory Tests 06/15/22 19:45: White Blood Count 8.8, Red Blood Count 3.69L, Hemoglobin 10.5L, Hematocrit 32L, Mean Corpuscular Volume 86, Mean Corpuscular Hemoglobin 29, Mean Corpuscular Hemoglobin Concent 33, Red Cell Distribution Width 16.9H, Platelet Count 219, Mean Platelet Volume 11.9, Immature Granulocyte % (Auto) 1, Neutrophils (%) (Auto) 67, Lymphocytes (%) (Auto) 25, Monocytes (%) (Auto) 6, Eosinophils (%) (Auto) 1, Basophils (%) (Auto) 1, Neutrophils # (Auto) 5.9, Lymphocytes # (Auto) 2.2, Monocytes # (Auto) 0.5, Eosinophils # (Auto) 0.1, Basophils # (Auto) 0.0, Immature Granulocyte # (Auto) 0.1 06/15/22 20:22: YONATAN ROLDAN MD Jun 16, 2022 16:48
[2022-06-16] MEDS: IBUPROFEN 600 MG (MOTRIN) TAB PO SCH ×2 (17:51→23:53)
[2022-06-16] MEDS: ACETAMINOPHEN 500 MG TAB (TYLENOL) PO SCH ×2 (17:51→23:52)
[2022-06-16] MEDS: DOCUSATE SODIUM 100 MG (COLACE) CAP PO SCH (20:54)
[2022-06-16] MEDS ORDERED: CATHETER FLUSH 10 ML SYR IV SCH (22:00)
[2022-06-17 05:00] VITALS: BP 88/57
[2022-06-17 05:38] LABS: BASOPHILS % (AUTO) 0 % (0-10); EOSINOPHILS # (AUTO) 0.1 10^3/uL (0.0-0.3); EOSINOPHILS % (AUTO) 1 % (0-10); HEMATOCRIT 28 % (35-52); HEMOGLOBIN 9.1 g/dL (11.5-16.0); LYMPHOCYTES # (AUTO) 2.3 10^3/uL (1.0-4.0); LYMPHOCYTES % (AUTO) 21 % (12-44); MEAN CORPUSCULAR HEMOGLOBIN 29 pg (25-34); MEAN CORPUSCULAR HGB CONC 33 g/dL (32-36); MEAN CORPUSCULAR VOLUME 87 fL (80-99); MEAN PLATELET VOLUME 11.4 fL (9.0-12.2); MONOCYTES # (AUTO) 0.8 10^3/uL (0.0-1.0); MONOCYTES % (AUTO) 7 % (0-12); NEUTROPHILS # (AUTO) 7.9 10^3/uL (1.8-7.8); NEUTROPHILS % (AUTO) 71 % (42-75); PLATELET COUNT 180 10^3/uL (130-400); WHITE BLOOD COUNT 11.2 10^3/uL (4.3-11.0)
[2022-06-17] MEDS: ACETAMINOPHEN 500 MG TAB (TYLENOL) PO SCH ×3 (06:51→18:20)
[2022-06-17] MEDS: IBUPROFEN 600 MG (MOTRIN) TAB PO SCH ×3 (06:51→18:20)
[2022-06-17] MEDS: PRENATAL VITAMIN 1 EA TAB PO SCH (06:51)
[2022-06-17 08:15] VITALS: BP 115/68
[2022-06-17] MEDS: FERROUS SULF 325 MG (IRON) TAB PO SCH (10:00)
[2022-06-17] MEDS: DOCUSATE SODIUM 100 MG (COLACE) CAP PO SCH ×2 (10:00→20:55)
[2022-06-17 12:51] VITALS: BP 103/53
--- NOTE | 2022-06-17 14:10 | Anesthesia-Regional Post-Op ---
Regional Patient Condition Mental Status: Alert, Oriented x3 Circulation: Same as Pre-Op Headache: Absent Sensation: Full Recovery Motor Block: Absent Post Op Complications Complications None Follow Up Care/Instructions Patient Instructions None needed. Anesthesia/Patient Condition Patient is doing well, no complaints, stable vital signs, no apparent adverse anesthesia problems. No complications reported per nursing. BARI KNOX DO Jun 17, 2022 14:10
--- NOTE | 2022-06-17 16:26 | Postpartum Progress Note ---
Note Note Day # 1 Subjective: Patient is without complaints. Ambulating, voiding. Tolerating a regular diet without nausea or vomiting. Normal lochia. Pain is well controlled with oral pain medications. Breast/Bottle feeding. Objective: Physical Exam: General - Alert and oriented, no apparent distress Abdomen - Soft, appropriately tender to palpation, non-distended, fundus firm at umbilicus Extremities - no edema, negative Lindsey's bilaterally Assessment: 27 yo G1 now P1 post- day # 1, status post low vacuum vaginal delivery. Recovering well, hemodynamically stable Anemia of acute blood loss Plan: Routine care. Encourage breast feeding, consult placed Encourage ambulation. Ferrous sulfate supplementation. Plan for discharge tomorrow Vitals - Labs Vital Signs - I&O Vital Signs Date Time Temp Pulse Resp B/P (MAP) Pulse Ox O2 Delivery O2 Flow Rate FiO2 06/17/22 12:51 36.4 85 16 103/53 (70) 98 Room Air 06/17/22 08:15 36.6 84 18 115/68 (84) 97 Room Air 06/17/22 05:00 36.2 91 18 88/57 (67) 97 Room Air 06/16/22 23:53 36.0 90 18 112/76 (88) 99 Room Air 06/16/22 20:54 36.8 85 18 97/60 (72) 98 Room Air 06/16/22 17:50 36.8 99 18 106/70 (82) 98 Room Air 06/16/22 16:35 90 18 98/57 (71) Room Air I & O 06/17/22 07:00 Intake Total 2700 ml Balance 2700 ml Labs Laboratory Tests 06/17/22 05:22: White Blood Count 11.2H, Red Blood Count 3.18L, Hemoglobin 9.1L, Hematocrit 28L, Mean Corpuscular Volume 87, Mean Corpuscular Hemoglobin 29, Mean Corpuscular Hemoglobin Concent 33, Red Cell Distribution Width 16.8H, Platelet Count 180, Mean Platelet Volume 11.4, Immature Granulocyte % (Auto) 1, Neutrophils (%) (Auto) 71, Lymphocytes (%) (Auto) 21, Monocytes (%) (Auto) 7, Eosinophils (%) (Auto) 1, Basophils (%) (Auto) 0, Neutrophils # (Auto) 7.9H, Lymphocytes # (Auto) 2.3, Monocytes # (Auto) 0.8, Eosinophils # (Auto) 0.1, Basophils # (Auto) 0.0, Immature Granulocyte # (Auto) 0.1 YONATAN ROLDAN MD Jun 17, 2022 16:26
[2022-06-17 16:56] VITALS: BP 137/67
[2022-06-17 20:55] VITALS: BP 110/71
[2022-06-18 00:35] VITALS: BP 113/77
[2022-06-18] MEDS: ACETAMINOPHEN 500 MG TAB (TYLENOL) PO SCH ×3 (00:35→11:51)
[2022-06-18] MEDS: IBUPROFEN 600 MG (MOTRIN) TAB PO SCH ×3 (00:38→11:52)
[2022-06-18 06:39] VITALS: BP 103/67
[2022-06-18] MEDS: PRENATAL VITAMIN 1 EA TAB PO SCH (06:39)
--- NOTE | 2022-06-18 10:19 | Discharge Summary ---
Diagnosis/Chief Complaint Date of Admission Jun 15, 2022 at 18:19 Date of Discharge 06/18/2022 Admission Diagnosis Admission Diagnosis Third Trimester 40 week gestation Discharge Summary-Simple/Stand Discharge Physical Examination Allergies: Coded Allergies: azithromycin (Verified Allergy, Mild, Hives, 04/13/22) latex (Verified Allergy, Mild, Itching, 06/16/22) Vitals & I&Os Vital Sign - Last 12Hours Date Time Temp Pulse Resp B/P (MAP) Pulse Ox O2 Delivery O2 Flow Rate FiO2 06/18/22 06:39 36.1 83 18 103/67 (79) 98 Room Air 06/16/22 14:07 15.00 Hospital Course See final discharge diagnosis. Discharge Instructions to patient/family Please see electronic discharge instructions given to patient. Discharge Medications Reviewed and agree with Discharge Medication list on patient's Discharge Instruction sheet YONATAN ROLDAN MD Jun 18, 2022 10:19
[2022-06-18] MEDS ORDERED: IBUP-844 PO (10:20)
[2022-06-18] MEDS ORDERED: DOCU100C37 PO (10:20)
--- NOTE | 2022-06-18 10:20 | Discharge Summary ---
Discharge Inst-[facility] Reconcile Patient Problems Problems Reviewed?: Yes Depart Medications New, Converted or Re-Newed RX: Transmitted to Pharmacy New Medications: Docusate Sodium (Docusate Sodium) 100 Mg Capsule 100 MG PO BID, #28 CAP Ibuprofen (Ibu) 600 Mg Tablet 600 MG PO Q6H, #30 TAB Continued Medications: Albuterol Sulfate (Ventolin Hfa) 90 Mcg Hfa.aer.ad 18 GM INH Q4H PRN for WHEEZING for 30 Days, #1 EA Ferrous Sulfate (Ferrous Sulfate) 325 Mg (65 Mg Iron) Tablet 325 MG PO DAILY, TAB Vit W-Ca,Fe,FA(<1 mg) ( Formula) 28 Mg Iron-800 Mcg Tablet 1 EACH PO DAILY, TAB Discontinued Medications: Famotidine (Acid Capping Machine Operator (FAMOTIDINE)) 20 Mg Tablet 20 MG PO DAILY for heartburn, TAB Lactobacillus Rhamnosus R0011 (Probiotic Digestive Care) Unknown Strength Capsule Unknown Dose PO DAILY, CAP Ondansetron (Ondansetron Odt) 4 Mg Tab.rapdis 4 MG SL Q6H PRN for NAUSEA/VOMITING for 5 Days, #20 TAB Follow Up/Instructions Goal/Follow Up: 6 weeks with Carlos Greenfield Activity: Activity as Tolerated Driving Instructions: You May Drive Nothing Inside Vagina: No Douching, No [place], No Tampons Diet Discharge Diet: No Restrictions Symptoms to Report to : Swelling Increased, Bleeding Excessive, Pain I ncreased, Fever Over 101 Degrees F YONATAN ROLDAN MD Jun 18, 2022 10:20
[2022-06-18 11:50] VITALS: BP 116/64
[2022-06-18] MEDS: FERROUS SULF 325 MG (IRON) TAB PO SCH (11:51)
[2022-06-18] MEDS: DOCUSATE SODIUM 100 MG (COLACE) CAP PO SCH (11:52)
== END 2022-06-18 12:30 | disposition home or self-care (01) | DRG 806 ==
LOC: LDRP 18:19
PROVIDERS: ADMIT Family Medicine; ATTEND Family Medicine
PROC: 10D07Z6 Extraction of Products of Conception, Vacuum, Via Natural or Artificial Opening (ICD-10-PCS; principal; 2022-06-16)
PROC: 0KQM0ZZ Repair Perineum Muscle, Open Approach (ICD-10-PCS; 2022-06-16)
PROC: 0UQMXZZ Repair Vulva, External Approach (ICD-10-PCS; 2022-06-16)
PROC: 3E0DXGC Introduction of Other Therapeutic Substance into Mouth and Pharynx, External Approach (ICD-10-PCS; 2022-06-16)
PROC: 10907ZC Drainage of Amniotic Fluid, Therapeutic from Products of Conception, Via Natural or Artificial Opening (ICD-10-PCS; 2022-06-16)
DX: O48.0 Post-term pregnancy (principal); D62 Acute posthemorrhagic anemia; Z37.0 Single live birth; O70.1 Second degree perineal laceration during delivery; Z3A.40 40 weeks gestation of pregnancy; O69.81X0 Labor and delivery complicated by cord around neck, without compression, not applicable or unspecified; O76 Abnormality in fetal heart rate and rhythm complicating labor and delivery; O90.81 Anemia of the puerperium; Z28.310 Unvaccinated for COVID-19
CPT/HCPCS: 36415; 85025; 86780; 86850; 86900; 86901

== ENCOUNTER 2023-01-31 22:16 | Emergency (ER) | payer MEDICAID ==
[~2023-01-31] VITALS: Ht 162.5 cm; Wt 80.1 kg
[~2023-01-31 22:16] MED LIST changes: +DOCU100C37 PO; +FAMO-356 PO; -FAMO20TA3 PO; +IBUP-844 PO
[2023-01-31] MEDS ORDERED: ONDANSETRON INJECTION 4 MG/2 ML (SDV) IVP STA (22:47)
[2023-01-31] MEDS ORDERED: NS IV 1000 ML 1,000 ML IV STA (22:47)
[2023-01-31 23:18] LABS: BASOPHILS # (AUTO) 0.1 10^3/uL (0.0-0.1); BASOPHILS % (AUTO) 1 % (0-10); EOSINOPHILS % (AUTO) 0 % (0-10); HEMATOCRIT 38 % (35-52); HEMOGLOBIN 12.5 g/dL (11.5-16.0); LYMPHOCYTES # (AUTO) 1.4 10^3/uL (1.0-4.0); LYMPHOCYTES % (AUTO) 14 % (12-44); MEAN CORPUSCULAR HEMOGLOBIN 29 pg (25-34); MEAN CORPUSCULAR HGB CONC 33 g/dL (32-36); MEAN CORPUSCULAR VOLUME 88 fL (80-99); MEAN PLATELET VOLUME 10.7 fL (9.0-12.2); MONOCYTES # (AUTO) 0.5 10^3/uL (0.0-1.0); MONOCYTES % (AUTO) 5 % (0-12); NEUTROPHILS # (AUTO) 8.2 10^3/uL (1.8-7.8); NEUTROPHILS % (AUTO) 80 % (42-75); PLATELET COUNT 290 10^3/uL (130-400); WHITE BLOOD COUNT 10.3 10^3/uL (4.3-11.0)
--- NOTE | 2023-01-31 23:22 | ED Cough/URI ---
General Chief Complaint: Cough/Cold/Flu Symptoms Stated Complaint: SOB|VOMITING|FEVER Source: patient History of Present Illness Date Seen by Provider: Jan 31, 2023 Time Seen by Provider: 22:20 Initial Comments 28-year-old female presenting with complaints of having upper respiratory infection with cough and congestion. She has been coughing to the point that she was vomiting. She has felt like she had a fever with the highest at 101 Fahrenheit. She started getting sick Wednesday night. Her 7-month-old started getting sick with similar symptoms on . She does not have any known ill contacts. She was feeling more dizzy and lightheaded tonight and concerned that she was dehydrated. She denies having any pain or burning with urination. She has had some small amount of loose stools. Timing/Duration: getting worse (since Wednesday) Severity/Quality: moderate, productive cough Prior Episodes/Possible Cause: no prior episodes Modifying Factors: Worse With Activity, Worse With Coughing Associated Symptoms: chest pain/soreness, cough, dizziness, fever/chills, headache, lightheadedness, nasal congestion, shortness of breath Allergies and Home Medications Allergies Coded Allergies: azithromycin (Verified Allergy, Mild, Hives, 04/13/22) latex (Verified Allergy, Mild, Itching, 06/16/22) Patient Home Medication List Home Medication List Reviewed: Yes Albuterol Sulfate (Ventolin Hfa) 90 Mcg Hfa.aer.ad, 18 GM INH Q4H PRN for WHEEZING Prescribed by: JUAN SEO on 03/05/22 1129 Docusate Sodium (Docusate Sodium) 100 Mg Capsule, 100 MG PO BID Prescribed by: YONATAN ROLDAN on 06/18/22 1020 Ferrous Sulfate (Ferrous Sulfate) 325 Mg (65 Mg Iron) Tablet, 325 MG PO DAILY, (Reported) Entered as Reported by: NISHA HURTADO on 04/13/22 0013 Ibuprofen (Ibu) 600 Mg Tablet, 600 MG PO Q6H Prescribed by: YONATAN ROLDAN on 06/18/22 1020 Ondansetron (Ondansetron Odt) 4 Mg Tab.rapdis, 4 MG PO Q6H PRN for GEOVANY SEA/VOMITING Prescribed by: MANDY GALEANA on 02/01/23 0017 Vit W-Ca,Fe,FA(<1 mg) ( Formula) 28 Mg Iron-800 Mcg Tablet, 1 EACH PO DAILY, (Reported) Entered as Reported by: NISHA HURTADO on 04/13/22 0013 Review of Systems Review of Systems Constitutional: chills, dizziness, fever, weakness EENTM: nose congestion Respiratory: cough, short of breath Gastrointestinal: abdominal pain (Sore from throwing up), diarrhea, nausea, vomiting Genitourinary: No dysuria Musculoskeletal: other (Generalized body aches) Skin: No rash Psychiatric/Neurological: See HPI Past Itvdwhm-Efprsr-Ijazge Hx Patient Social History Tobacco Use?: No Use of E-Cig and/or Vaping dev: No Substance use?: No Immunizations Up To Date Tetanus Booster (TDap): Less than 5yrs Past Medical History Surgery/Hospitalization HX: Hx hyperactive thyroid Surgeries: No Physical Exam Vital Signs - First Documented 01/31/23 22:30 Temp 36.8 Pulse 142 Resp 16 B/P (MAP) 118/76 (90) Pulse Ox 96 O2 Delivery Room Air Capillary Refill : Height: '" Weight: lbs. oz. kg; 32.21 BMI Method: General Appearance: WD/WN, no apparent distress HEENT: PERRL/EOMI; No pharynx normal (Slightly dry mucous membranes) Neck: non-tender, full range of motion, supple, normal inspection Respiratory: chest non-tender, lungs clear, normal breath sounds, no respirato ry distress, no accessory muscle use Cardiovascular: normal peripheral pulses, tachycardia Gastrointestinal: normal bowel sounds, non tender, soft, no pulsatile mass Extremities: normal range of motion, non-tender, normal capillary refill Neurologic/Psychiatric: alert, oriented x 3 Skin: normal color, warm/dry Progress/Results/Core Measures Suspected Sepsis SIRS Temperature: Pulse: Respiratory Rate: Laboratory Tests 01/31/23 23:00: White Blood Count 10.3 Blood Pressure / Mean: Laboratory Tests 01/31/23 23:00: Creatinine 0.60, Platelet Count 290, Total Bilirubin 0.9 Results/Orders Lab Results Laboratory Tests Test 01/31/23 22:57 01/31/23 23:00 01/31/23 23:48 Range/Units Influenza Type A (RT-PCR) Not Detected Not Detecte Influenza Type B (RT-PCR) Not Detected Not Detecte SARS-CoV-2 RNA (RT-PCR) Not Detected Not Detecte White Blood Count 10.3 4.3-11.0 10^3/uL Red Blood Count 4.29 3.80-5.11 10^6/uL Hemoglobin 12.5 11.5-16.0 g/dL Hematocrit 38 35-52 % Mean Corpuscular Volume 88 80-99 fL Mean Corpuscular Hemoglobin 29 25-34 pg Mean Corpuscular Hemoglobin Concent 33 32-36 g/dL Red Cell Distribution Width 13.0 10.0-14.5 % Platelet Count 290 130-400 10^3/uL Mean Platelet Volume 10.7 9.0-12.2 fL Immature Granulocyte % (Auto) 0 % Neutrophils (%) (Auto) 80 H 42-75 % Lymphocytes (%) (Auto) 14 12-44 % Monocytes (%) (Auto) 5 0-12 % Eosinophils (%) (Auto) 0 0-10 % Basophils (%) (Auto) 1 0-10 % Neutrophils # (Auto) 8.2 H 1.8-7.8 10^3/uL Lymphocytes # (Auto) 1.4 1.0-4.0 10^3/uL Monocytes # (Auto) 0.5 0.0-1.0 10^3/uL Eosinophils # (Auto) 0.0 0.0-0.3 10^3/uL Basophils # (Auto) 0.1 0.0-0.1 10^3/uL Immature Granulocyte # (Auto) 0.0 0.0-0.1 10^3/uL Sodium Level 138 135-145 MMOL/L Potassium Level 3.7 3.6-5.0 MMOL/L Chloride Level 104 98-107 MMOL/L Carbon Dioxide Level 22 21-32 MMOL/L Anion Gap 12 5-14 MMOL/L Blood Urea Nitrogen 8 7-18 MG/DL Creatinine 0.60 0.60-1.30 MG/DL Estimat Glomerular Filtration Rate 126 BUN/Creatinine Ratio 13 Glucose Level 99 70-105 MG/DL Calcium Level 9.0 8.5-10.1 MG/DL Corrected Calcium 8.8 8.5-10.1 MG/DL Total Bilirubin 0.9 0.1-1.0 MG/DL Aspartate Amino Transf (AST/SGOT) 15 5-34 U/L Alanine Aminotransferase (ALT/SGPT) 19 0-55 U/L Alkaline Phosphatase 118 40-136 U/L Total Protein 7.6 6.4-8.2 GM/DL Albumin 4.2 3.2-4.5 GM/DL Lipase 17 8-78 U/L Urine Color YELLOW Urine Clarity SL CLOUDY Urine pH 6.5 5-9 Urine Specific [place] 1.020 1.016-1.022 Urine Protein NEGATIVE NEGATIVE Urine Glucose (UA) NEGATIVE NEGATIVE Urine Ketones TRACE H NEGATIVE Urine Nitrite NEGATIVE NEGATIVE Urine Bilirubin NEGATIVE NEGATIVE Urine Urobilinogen 0.2 < = 1.0 MG/DL Urine Leukocyte Esterase NEGATIVE NEGATIVE Urine RBC (Auto) TRACE-I H NEGATIVE Urine RBC RARE /HPF Urine WBC RARE /HPF Urine Squamous Epithelial Cells 2-5 /HPF Urine Crystals NONE /LPF Urine Bacteria FEW H /HPF Urine Casts NONE /LPF Urine Mucus MODERATE H /LPF Urine Culture Indicated NO My Orders Orders - MANDY GALEANA MD Comprehensive Metabolic Panel (01/31/23 22:46) Lipase (01/31/23 22:46) Ua Culture If Indicated (01/31/23 22:46) Ed Iv/Invasive Line Start (01/31/23 22:46) Cbc And Automated Diff (01/31/23 22:46) Covid 19 Inhouse Test (01/31/23 22:46) Chest 1 View Ap/Pa Only (01/31/23 22:46) Influenza A And B By Pcr (01/31/23 22:46) Ns Iv 1000 Ml (Ns Iv 1000 Ml) (01/31/23 22:47) Ondansetron Injection (Ondansetron Inj (01/31/23 22:47) Rx-Ondansetron Po (Rx-Zofran Po) (02/01/23 00:26) Vital Signs/I&O 01/31/23 22:30 Temp 36.8 Pulse 142 Resp 16 B/P (MAP) 118/76 (90) Pulse Ox 96 O2 Delivery Room Air 02/01/23 00:00 Intake Total 1000 ml Balance 1000 ml Capillary Refill : Progress Note #1: Progress Note Differential diagnosis includes COVID, influenza, viral syndrome, pneumonia. Establish peripheral IV access and send labs for complete blood count, comprehensive metabolic profile, lipase. Urinalysis to look at hydration. Administer normal saline 1 L IV fluid bolus for hydration, Zofran 4 mg IV for nausea and vomiting Progress Note #2: Progress Note On my personal interpretation and review of the 1 view chest x-ray she does not have any acute infiltrate or acute process. There were complete blood count showed a normal white blood cell count of 10.3. She was not anemic with a hemoglobin of 12.5. Her son's respiratory panel was negative for flu, COVID, RSV. Her respiratory panel was still pending. She was able to provide a urine specimen after getting some IV fluids here in the ED. 0016 urinalysis was slightly concentrated with specific gravity 1.020. She had trace ketones but did not have nitrites or leukocyte esterase to indicate a UTI. Her comprehensive metabolic profile was not showing acute severe dehydration as she had a normal renal function and no acute significant abnormality with her electrolytes. Awaiting respiratory panel for COVID and influenza. Progress Note #3: Progress Note Influenza and COVID were negative. Reassured patient and on recheck of her vital signs her heart rate was down to 120 from 140. Patient states that she always has some tachycardia due to hyperthyroidism. She was feeling better and was reassured that the chest x-ray was clear as well as COVID and flu were negative. Reassured about viral syndrome. Encourage fluids and hydration. Given a 4 pack of Zofran ODT to help with nausea. Send a prescription to the pharmacy to continue Zofran as needed nausea and vomiting every 6 hours. Diagnostic Imaging Diagonstic Imaging: Xray Plain Films/CT/US/NM/MRI: chest Reviewed: Reviewed by Me Departure Impression Primary Impression: Upper respiratory infection with cough and congestion Additional Impressions: Acute viral syndrome Dehydration Disposition: 01 HOME, SELF-CARE Condition: Improved Departure-Patient Inst. Decision time for Depature: 00:26 Referrals: YONATAN ROLDAN MD (PCP/Family) Primary Care Physician Patient Instructions: Upper Respiratory Infection ED, Dehydration, Adult ED, Cough, Adult ED Add. Discharge Instructions: Try to stay well-hydrated and keep sipping on fluids. Use the dissolving Zofran tablets to help keep the stomach more settled. Consider using a humidifier or vaporizer at the bedside to help with congestion and cough. All discharge instructions reviewed with patient and/or family. Voiced understanding. Scripts Ondansetron (Ondansetron Odt) 4 Mg Tab.rapdis 4 MG PO Q6H PRN for NAUSEA/VOMITING for 5 Days, #20 TAB 0 Refills Prov: MANDY GALEANA MD 02/01/23 Work/School Note: Family Work Note Patient Received Medical Care In the Emergency Department On: Jan 31, 2023 Patient Will Be Able to Return to Work/School On: Feb 01, 2023 MANDY GALEANA MD Jan 31, 2023 23:22
[2023-01-31 23:57] LABS: BILIRUBIN,TOTAL 0.9 MG/DL (0.1-1.0); CREATININE SERUM 0.6 MG/DL (0.60-1.30); POTASSIUM 3.7 MMOL/L (3.6-5.0); TOTAL PROTEIN 7.6 GM/DL (6.4-8.2)
[2023-01-31 23:58] LABS: ALBUMIN 4.2 GM/DL (3.2-4.5)
[2023-02-01 00:03] LABS: BILIRUBIN,URINE NEGATIVE (NEGATIVE); CLARITY,URINE SL CLOUDY; COLOR,URINE YELLOW; GLUCOSE, URINE (UA) NEGATIVE (NEGATIVE); KETONES,URINE TRACE (NEGATIVE); LEUKOCYTE ESTERASE ,URINE NEGATIVE (NEGATIVE); NITRITE,URINE NEGATIVE (NEGATIVE); PH,URINE 6.5 (5-9); PROTEIN,URINE NEGATIVE (NEGATIVE)
[2023-02-01 00:14] LABS: BACTERIA,URINE FEW /HPF; RBC,URINE RARE /HPF; WBC,URINE RARE /HPF
[2023-02-01] MEDS ORDERED: ONDA4TAB11 PO (00:17)
[2023-02-01] MEDS ORDERED: RX-ONDANSETRON 4 MG ODT (ZOFRAN) PPK #4 PO STA (00:26)
[2023-02-01 00:32] VITALS: BP 116/72
--- NOTE | 2023-02-01 07:32 | Diagnostic Imaging Report ---
EXAMINATION: Chest radiograph, portable AP view. DATE: 01/31/2023 11:10 PM INDICATION: 28-year-old female, cough and fever. COMPARISON: None. FINDINGS: Heart size and mediastinal contours are unremarkable. There is no identified pneumothorax. There is no large pleural effusion. There is no identified focal airspace consolidation. IMPRESSION: 1. No identified acute cardiopulmonary abnormality. Dictated by: Dictated on workstation # [id number]
== END 2023-02-01 00:32 | disposition home or self-care (01) ==
LOC: EDUNIT# 22:16 → ER FS 22:17
DX: J06.9 Acute upper respiratory infection, unspecified (principal); B97.89 Other viral agents as the cause of diseases classified elsewhere; E86.0 Dehydration; R00.0 Tachycardia, unspecified; E05.90 Thyrotoxicosis, unspecified without thyrotoxic crisis or storm; Z91.040 Latex allergy status; Z20.822 Contact with and (suspected) exposure to COVID-19
CPT/HCPCS: 36415; 71045; 80053; 81000; 83690; 85025; 87636